=== PATIENT | female | born 1930 ===

== ENCOUNTER 2017-05-22 19:01 | Emergency (ER) | payer MEDICARE, MEDICAID ==
[2017-05-22 19:12] VITALS: BP 146/88; PULSE 85; RESP 20; TEMP 98.9; O2SAT 97
--- NOTE | 2017-05-22 20:06 | ED PDOC ---
HPI: Trauma/Fall - HPI Time Seen by Provider: 05/22/17 19:28 Chief Complaint (Nursing): Trauma Chief Complaint (Provider): Head pain History Per: Patient History/Exam Limitations: no limitations Onset/Duration Of Symptoms: Hrs Additional Complaint(s): Patient is an 87 year old female with a past medical history of hypertension, arthritis, hypercholesterolemia, and gastritis presenting to the emergency department for mild head pain status post fall three hours ago. States that she was walking when she slipped and fell backwards, hitting the back of her head. Cannot provide the names of her medications. Denies loss of consciousness, nausea, vomiting, or other complaints. PCP: Dr. Se Callahan Past Medical History Reviewed: Historical Data, Nursing Documentation, Vital Signs Vital Signs: Last Vital Signs Temp 98.9 F 05/22/17 19:08 Pulse 85 05/22/17 19:08 Resp 20 05/22/17 19:08 BP 146/88 05/22/17 19:08 Pulse Ox 97 05/22/17 19:08 - Medical History PMH: Asthma, Gastritis, HTN, Hypercholesterolemia, Chronic Pain (back, b/l hip) - Family History Family History: States: Unknown Family Hx - Immunization History Hx Tetanus Toxoid Vaccination: No Hx Influenza Vaccination: No Hx Pneumococcal Vaccination: No - Home Medications Home Medications: Ambulatory Orders Medication Instructions Recorded Brimonidine 0.15% [Alphagan P 5 Ml] 1 drop OP BID 05/28/16 Celecoxib [CeleBREX] 200 mg PO DAILY 05/28/16 Ergocalciferol (Vitamin D2) 50,000 iu PO DAILY 05/28/16 [Vitamin D] Esomeprazole Magnesium [Nexium] 40 mg PO DAILY 05/28/16 Multivit,Iron,Min 5/Folic Acid 1 each PO DAILY 05/28/16 [Strovite Forte Caplet] [place]-3 Acid Ethyl Esters 1 gm PO DAILY 05/28/16 Rosuvastatin Calcium [Crestor] 5 mg PO DAILY 05/28/16 amLODIPine [Norvasc] 5 mg PO DAILY 05/28/16 Acetaminophen [8 Hour Pain Relief] 650 mg PO Q8 PRN #24 tablet.er 10/13/16 Diclofenac Sodium [Voltaren] 2 gm TP BID PRN #100 gel..gram. 10/13/16 - Allergies Allergies/Adverse Reactions: Allergies Allergy/AdvReac Type Severity Reaction Status Date / Time Penicillins Allergy RASH Verified 05/22/17 19:07 Review of Systems ROS Statement: Except As Marked, All Systems Reviewed And Found Negative Gastrointestinal: Negative for: Nausea, Vomiting Musculoskeletal: Positive for: Other (mild head pain) Neurological: Negative for: Other (loss of consciousness) Physical Exam - Reviewed Nursing Documentation Reviewed: Yes Vital Signs Reviewed: Yes - Physical Exam Appears: Positive for: Well, Non-toxic, No Acute Distress Head Exam: Positive for: ATRAUMATIC, NORMAL INSPECTION, NORMOCEPHALIC Skin: Positive for: Normal Color, Warm, Dry Eye Exam: Positive for: Normal appearance, EOMI Neck: Positive for: Normal, Painless ROM, Supple Cardiovascular/Chest: Positive for: Regular Rate, Rhythm. Negative for: Murmur Respiratory: Positive for: Normal Breath Sounds. Negative for: Accessory Muscle Use, Respiratory Distress Gastrointestinal/Abdominal: Positive for: Normal Exam, Soft Extremity: Positive for: Normal ROM. Negative for: Pedal Edema Neurologic/Psych: Positive for: Alert, Oriented. Negative for: Motor/Sensory Deficits - Laboratory Results Result Diagrams: 05/22/17 21:45 05/22/17 21:45 - ECG O2 Sat by Pulse Oximetry: 97 (RA) Pulse Ox Interpretation: Normal Medical Decision Making Medical Decision Making: Time: 19:28 Initial Impression: Head injury, rule out intracranial bleeding Initial Plan: Head CT scan Urine Dipstick Reevaluation 20:40 Additional orders placed for: Crisis Evaluation Labs Ativan 3 mg IM 1:1 Observation 21:22 Contacted patient's daughter who admits that patient has dementia in addition to episodes of confusion and memory issues. Requests crisis consult for evaluation. Will have med clearance done. Pt is medically cleared for crisis eval. Crisis eval: per Dr Lepe pt does not require screening involunatry admission and or eligible for voluntary admission thus cleared for discharge. FINDINGS: Brain: Noxe-lw-ydkqgyum atrophy. No intracranial hemorrhage. No mass. Multiple scattered foci of decreased attenuation within periventricular/subcortical white matter. Chronic lacunar infarct within LEFT thalamus. No edema. Ventricles: No hydrocephalus. Bones/joints: No acute fracture. Soft tissues: Unremarkable. Vasculature: Atherosclerotic disease of intracranial arteries. Sinuses: No acute sinusitis. Mastoid air cells: No mastoid effusion. Orbits: Unremarkable as visualized. IMPRESSION: 1. No intracranial hemorrhage. 2. Nonspecific white matter changes. 3. Incidental/non-acute findings are described above. Scribe Attestation: Documented by Yamilet Palencia, acting as a scribe for Ton Kyle MD. Provider Scribe Attestation: All medical record entries made by the Scribe were at my direction and personally dictated by me. I have reviewed the chart and agree that the record accurately reflects my personal performance of the history, physical exam, medical decision making, and the department course for this patient. I have also personally directed, reviewed, and agree with the discharge instructions and disposition. Disposition - Clinical Impression Clinical Impression: Head injury - Patient ED Disposition Is Patient to be Admitted: No Doctor Will See Patient In The: Office Counseled Patient/Family Regarding: Studies Performed, Diagnosis, Need For Followup - Disposition Referrals: [facility] [Outside] Disposition: Routine/Home Disposition Time: 23:08 Condition: GOOD Additional Instructions: Follow up with your PCP in 2-3 days. Instructions: Head Injury (ED) Print Language: MONTSERRATIAN
[2017-05-22 21:55] LABS: HEMATOCRIT 38.2 % (34.0-47.0); MEAN CELL VOLUME 105.6 fl (81.0-99.0); MEAN CORPUSCULAR HEMOGLOBIN 35.4 pg (27.0-31.0); MEAN CORPUSCULAR HGB CONC 33.5 g/dL (33.0-37.0); RED CELL DISTRIBUTION WIDTH 13.3 % (11.5-14.5); WHITE BLOOD COUNT 4.9 K/uL (4.8-10.8)
[2017-05-22 22:07] LABS: BLOOD UREA NITROGEN 15 mg/dl (7-17); CARBON DIOXIDE 32 mmol/L (22-30); CHLORIDE 99 mmol/L (98-107); GFR AFRICAN-AMERICAN > 60; GLUCOSE,RANDOM 102 mg/dL (65-105); POTASSIUM 3.8 MMOL/L (3.6-5.0); SODIUM 139 mmol/l (132-148)
--- NOTE | 2017-05-22 23:03 | CT ---
EXAM: CT Head Without Intravenous Contrast CLINICAL HISTORY: 87 years old, female; Injury or trauma; Fall; Initial encounter; Laceration; Consciousness not specified; Without residual foreign body; Head, generalized; Injury date: Today; Injury details: Falling. HTN. Blurred vision; Additional info: Head injury headache TECHNIQUE: Axial computed tomography images of the head/brain without intravenous contrast. All CT scans at this facility use one or more dose reduction techniques, viz.: automated exposure control; ma/kV adjustment per patient size (including targeted exams where dose is matched to indication; i.e. head); or iterative reconstruction technique. Coronal and sagittal reformatted images were created and reviewed. COMPARISON: CT - HEAD^HEAD ROUTINE (ADULT) 02/12/2010 2:51:23 AM FINDINGS: Brain: Hylg-ki-nduoxlev atrophy. No intracranial hemorrhage. No mass. Multiple scattered foci of decreased attenuation within periventricular/subcortical white matter. Chronic lacunar infarct within LEFT thalamus. No edema. Ventricles: No hydrocephalus. Bones/joints: No acute fracture. Soft tissues: Unremarkable. Vasculature: Atherosclerotic disease of intracranial arteries. Sinuses: No acute sinusitis. Mastoid air cells: No mastoid effusion. Orbits: Unremarkable as visualized. IMPRESSION: 1. No intracranial hemorrhage. 2. Nonspecific white matter changes. 3. Incidental/non-acute findings are described above.
== END 2017-05-23 00:55 | disposition home or self-care (01) ==
LOC: H.ER 19:01
DX: S09.90XA Unspecified injury of head, initial encounter (principal); H53.8 Other visual disturbances; W01.0XXA Fall on same level from slipping, tripping and stumbling without subsequent striking against object, initial encounter; Y92.89 Other specified places as the place of occurrence of the external cause; F03.90 Unspecified dementia, unspecified severity, without behavioral disturbance, psychotic disturbance, mood disturbance, and anxiety; I10 Essential (primary) hypertension; Z88.0 Allergy status to penicillin
CPT/HCPCS: 70450; 80048; 85027; 96372; 99283; J2060

== ENCOUNTER 2017-05-24 23:38 | Emergency (ER) | payer MEDICARE, MEDICAID ==
[2017-05-24 23:48] VITALS: BP 154/86; PULSE 74; RESP 18; TEMP 98.3; O2SAT 99
--- NOTE | 2017-05-25 00:49 | ED PDOC ---
HPI: General Adult Time Seen by Provider: 05/24/17 23:59 Chief Complaint (Nursing): Back Pain Chief Complaint (Provider): Headache s/p injury History Per: Patient History/Exam Limitations: no limitations Onset/Duration Of Symptoms: Days (3) Current Symptoms Are (Timing): Still Present Additional History Per: Patient Additional Complaint(s): The patient is a 87yo female, past medical history of dementia, arthritis, hypertension, hypercholesterolemia, dislipidemia, presents to the ED for evaluation of headache present for the past 3 days s/p falling while attempting to get up form her chair. Patient states she lost her balance and hit her head; she denies associated LOC. She denies any neck apin, nausea, vomiting, shortness of breath, cough and chest pain. Patient offers no additional medical complaints. Past Medical History Reviewed: Historical Data, Nursing Documentation, Vital Signs Vital Signs: Last Vital Signs Temp 98.3 F 05/24/17 23:45 Pulse 74 05/24/17 23:45 Resp 18 05/24/17 23:45 BP 154/86 H 05/24/17 23:45 Pulse Ox 99 05/25/17 00:57 - Medical History PMH: Asthma, Gastritis, HTN, Hypercholesterolemia, Chronic Pain (back, b/l hip) Denies: Diabetes, Hepatitis, HIV, Seizures, Sexually Transmitted Disease - Surgical History Surgical History: No Surg Hx - Family History Family History: States: Unknown Family Hx - Social History Current smoker - smoking cessation education provided: No Alcohol: None Drugs: Denies - Immunization History Hx Tetanus Toxoid Vaccination: No Hx Influenza Vaccination: No Hx Pneumococcal Vaccination: No - Home Medications Home Medications: Ambulatory Orders Medication Instructions Recorded Brimonidine 0.15% [Alphagan P 5 Ml] 1 drop OP BID 05/28/16 Celecoxib [CeleBREX] 200 mg PO DAILY 05/28/16 Ergocalciferol (Vitamin D2) 50,000 iu PO DAILY 05/28/16 [Vitamin D] Esomeprazole Magnesium [Nexium] 40 mg PO DAILY 05/28/16 Multivit,Iron,Min 5/Folic Acid 1 each PO DAILY 05/28/16 [Strovite Forte Caplet] [place]-3 Acid Ethyl Esters 1 gm PO DAILY 05/28/16 Rosuvastatin Calcium [Crestor] 5 mg PO DAILY 05/28/16 amLODIPine [Norvasc] 5 mg PO DAILY 05/28/16 Acetaminophen [8 Hour Pain Relief] 650 mg PO Q8 PRN #24 tablet.er 10/13/16 Diclofenac Sodium [Voltaren] 2 gm TP BID PRN #100 gel..gram. 10/13/16 - Allergies Allergies/Adverse Reactions: Allergies Allergy/AdvReac Type Severity Reaction Status Date / Time Penicillins Allergy RASH Verified 05/22/17 19:07 Review of Systems ROS Statement: Except As Marked, All Systems Reviewed And Found Negative Cardiovascular: Negative for: Chest Pain Respiratory: Negative for: Cough, Shortness of Breath Gastrointestinal: Negative for: Nausea, Vomiting Neurological: Positive for: Headache Physical Exam - Reviewed Nursing Documentation Reviewed: Yes Vital Signs Reviewed: Yes - Physical Exam Appears: Positive for: Well, Non-toxic, No Acute Distress Head Exam: Positive for: ATRAUMATIC, NORMAL INSPECTION, NORMOCEPHALIC Skin: Positive for: Normal Color, Warm, DRY Eye Exam: Positive for: Normal appearance, EOMI, PERRL Neck: Positive for: Normal, Supple Cardiovascular/Chest: Positive for: Regular Rate, Rhythm Respiratory: Positive for: Normal Breath Sounds. Negative for: Respiratory Distress Gastrointestinal/Abdominal: Positive for: Normal Exam, Soft. Negative for: Tenderness Back: Positive for: Normal Inspection Extremity: Positive for: Normal ROM. Negative for: Deformity, Swelling Neurologic/Psych: Positive for: Alert, Oriented. Negative for: Motor/Sensory Deficits - ECG O2 Sat by Pulse Oximetry: 99 (RA) Pulse Ox Interpretation: Normal Medical Decision Making Medical Decision Making: Time: 00:05 Impression: 87yo female with headache in setting of recent head injury Plan: -- CT Head -- Tylenol [address] Head NAD Ptaient is stable for dc home Dx Head injury Patient will f/u with Dr Callahan Scribe Attestation: Documented by Federica Baca acting as a scribe for Frandy Mendoza MD. Provider Attestation: All medical record entries made by the Scribe were at my direction and personally dictated by me. I have reviewed the chart and agree that the record accurately reflects my personal performance of the history, physical exam, medical decision making, and the department course for this patient. I have also personally directed, reviewed, and agree with the discharge instructions and disposition. Disposition - Clinical Impression Clinical Impression: Head injury - Disposition Referrals: Se Callahan MD [Primary Care Provider] - Disposition: Routine/Home Disposition Time: 01:30 Condition: STABLE Instructions: Head Injury (ED) Forms: [facility] (Divehi) Print Language: ICELANDIC
--- NOTE | 2017-05-25 01:30 | CT ---
EXAM: CT Head Without Intravenous Contrast EXAM DATE/TIME: 05/25/2017 12:18 AM CLINICAL HISTORY: 87 years old, female; Injury or trauma; Fall TECHNIQUE: Axial computed tomography images of the head/brain without intravenous contrast. All CT scans at this facility use one or more dose reduction techniques, viz.: automated exposure control; ma/kV adjustment per patient size (including targeted exams where dose is matched to indication; i.e. head); or iterative reconstruction technique. Coronal and sagittal reformatted images were created and reviewed. COMPARISON: CT - HEAD W/O CONTRAST 05/22/2017 10:08:43 PM FINDINGS: Brain: There is dilatation of sulci gyri and ventricles. There is no midline shift. There is decreased attenuation in periventricular white matter. There are no focal masses. There are no focal hemorrhages. House-white differentiation is visualized. Ventricles: See above. Bones: Cranial vault is intact. Soft tissues: unremarkable Sinuses: There is no acute sinusitis. Ears and mastoids: Middle ears and mastoids are unremarkable. Orbits: There are no orbital abnormalities IMPRESSION: Atrophy and small vessel disease, notably
== END 2017-05-25 05:02 | disposition home or self-care (01) ==
LOC: H.ER 23:38
DX: S09.90XA Unspecified injury of head, initial encounter (principal); W19.XXXA Unspecified fall, initial encounter; Y92.89 Other specified places as the place of occurrence of the external cause; F03.90 Unspecified dementia, unspecified severity, without behavioral disturbance, psychotic disturbance, mood disturbance, and anxiety; G89.29 Other chronic pain; I10 Essential (primary) hypertension; I73.9 Peripheral vascular disease, unspecified; J45.909 Unspecified asthma, uncomplicated; Z88.0 Allergy status to penicillin

== ENCOUNTER 2017-06-07 13:37 | Emergency (ER) | payer MEDICARE, MEDICAID ==
[2017-06-07 13:53] VITALS: TEMP 97.8; O2SAT 98
--- NOTE | 2017-06-07 14:28 | ED PDOC ---
HPI: General Adult Time Seen by Provider: 06/07/17 13:58 Chief Complaint (Nursing): Abdominal Pain Chief Complaint (Provider): Dry mouth, anxious History Per: Patient History/Exam Limitations: no limitations Onset/Duration Of Symptoms: Days (1), Waxing/Waning Additional Complaint(s): The patient is a 87yo female, PMHx of hypertension, dementia, anxiety, arthritis , who presents to the ED for evaluation because she is not feeling well and that her mouth has been dry all day. She reports feeling anxious and generalized fatigue. Pt denies any fever, chills, headache, chest pain, abdominal pain, nausea, vomiting, back pain. She offers no additional medical complaints. Past Medical History Reviewed: Historical Data, Nursing Documentation, Vital Signs Vital Signs: Last Vital Signs Temp 97.8 F 06/07/17 13:49 Pulse 66 06/07/17 15:53 Resp 16 06/07/17 13:49 BP 169/78 H 06/07/17 13:49 Pulse Ox 98 06/07/17 15:53 - Medical History PMH: Asthma, Gastritis, HTN, Hypercholesterolemia, Chronic Pain (back, b/l hip) Denies: Diabetes, Hepatitis, HIV, Seizures, Sexually Transmitted Disease - Surgical History Surgical History: No Surg Hx - Family History Family History: States: Unknown Family Hx - Social History Current smoker - smoking cessation education provided: No Alcohol: None Drugs: Denies - Immunization History Hx Tetanus Toxoid Vaccination: No Hx Influenza Vaccination: No Hx Pneumococcal Vaccination: No - Home Medications Home Medications: Ambulatory Orders Medication Instructions Recorded Brimonidine 0.15% [Alphagan P 5 Ml] 1 drop OP BID 05/28/16 Celecoxib [CeleBREX] 200 mg PO DAILY 05/28/16 Ergocalciferol (Vitamin D2) 50,000 iu PO DAILY 05/28/16 [Vitamin D] Esomeprazole Magnesium [Nexium] 40 mg PO DAILY 05/28/16 Multivit,Iron,Min 5/Folic Acid 1 each PO DAILY 05/28/16 [Strovite Forte Caplet] [place]-3 Acid Ethyl Esters 1 gm PO DAILY 05/28/16 Rosuvastatin Calcium [Crestor] 5 mg PO DAILY 05/28/16 amLODIPine [Norvasc] 5 mg PO DAILY 05/28/16 Acetaminophen [8 Hour Pain Relief] 650 mg PO Q8 PRN #24 tablet.er 10/13/16 Diclofenac Sodium [Voltaren] 2 gm TP BID PRN #100 gel..gram. 10/13/16 - Allergies Allergies/Adverse Reactions: Allergies Allergy/AdvReac Type Severity Reaction Status Date / Time Penicillins Allergy RASH Verified 05/22/17 19:07 Review of Systems ROS Statement: Except As Marked, All Systems Reviewed And Found Negative Constitutional: Positive for: Other (generalized fatigue). Negative for: Fever , Chills ENT: Positive for: Other (dry mouth) Cardiovascular: Negative for: Chest Pain Gastrointestinal: Negative for: Nausea, Vomiting, Abdominal Pain Musculoskeletal: Negative for: Back Pain Neurological: Negative for: Headache Psych: Positive for: Anxiety Physical Exam - Reviewed Nursing Documentation Reviewed: Yes Vital Signs Reviewed: Yes - Physical Exam Appears: Positive for: Non-toxic, No Acute Distress Head Exam: Positive for: ATRAUMATIC, NORMAL INSPECTION, NORMOCEPHALIC Skin: Positive for: Normal Color Eye Exam: Positive for: Normal appearance, EOMI, PERRL Neck: Positive for: Normal, Supple Cardiovascular/Chest: Positive for: Regular Rate, Rhythm. Negative for: Murmur Respiratory: Positive for: Normal Breath Sounds. Negative for: Respiratory Distress Gastrointestinal/Abdominal: Positive for: Normal Exam, Soft. Negative for: Tenderness Back: Positive for: Normal Inspection Extremity: Positive for: Normal ROM. Negative for: Deformity, Swelling Neurologic/Psych: Positive for: Alert, Oriented. Negative for: Motor/Sensory Deficits - Laboratory Results Result Diagrams: 06/07/17 14:32 06/07/17 14:32 - ECG ECG: Positive for: Interpreted By Me, Viewed By Me ECG Rhythm: Positive for: Normal QRS, Normal ST Segment, Sinus Rhythm. Negative for: ST/T Changes Rate: 66 O2 Sat by Pulse Oximetry: 98 (RA) Pulse Ox Interpretation: Normal Medical Decision Making Medical Decision Making: Time: 1405 Impression: Fatigue Differential: Dehydration, acute renal failure, anxiety, UTI, other conditions considered but not listed. Plan: -- EKG -- CMP -- Troponin -- CBC --Reassess Scribe Attestation: Documented by Federica Baca acting as a scribe for Ton Kyle MD Provider Scribe Attestation: All medical record entries made by the Scribe were at my direction and personally dictated by me. I have reviewed the chart and agree that the record accurately reflects my personal performance of the history, physical exam, medical decision making, and the department course for this patient. I have also personally directed, reviewed, and agree with the discharge instructions and disposition. Disposition - Clinical Impression Clinical Impression: Mouth dryness, Anxiety, Fatigue - Patient ED Disposition Is Patient to be Admitted: No Doctor Will See Patient In The: Office Counseled Patient/Family Regarding: Studies Performed, Diagnosis, Need For Followup - Disposition Referrals: Se Callahan MD [Staff Provider] - Disposition: Routine/Home Disposition Time: 15:54 Condition: GOOD Additional Instructions: Follow up with your PCP in 2-3 days. Instructions: Anxiety (ED)
[2017-06-07 14:36] LABS: BASO # 0.1 K/uL (0.0-0.2); BASO % 0.9 % (0.0-2.0); EOS % 0.3 % (0.0-4.0); HEMATOCRIT 40.1 % (34.0-47.0); LYMPH % 13.6 % (20.0-40.0); MEAN CELL VOLUME 106.3 fl (81.0-99.0); MEAN CORPUSCULAR HEMOGLOBIN 35.2 pg (27.0-31.0); MEAN CORPUSCULAR HGB CONC 33.1 g/dL (33.0-37.0); MEAN PLATELET VOLUME 8.1 fl (7.2-11.7); MONO # 0.6 K/uL (0.0-0.8); MONO % 7.9 % (0.0-10.0); NEUT # 5.8 K/uL (1.8-7.0); NEUT % 77.3 % (50.0-75.0); RED CELL DISTRIBUTION WIDTH 13.5 % (11.5-14.5); WHITE BLOOD COUNT 7.4 K/uL (4.8-10.8)
[2017-06-07 14:58] VITALS: PULSE 66
[2017-06-07 14:59] LABS: ALB/GLOB RATIO 1.3 (1.0-2.1); ALKALINE PHOSPHATASE 71 U/L (38-126); ALT/SGPT 34 U/L (9-52); AST/SGOT 30 U/L (14-36); BILIRUBIN,TOTAL 0.9 mg/dl (0.2-1.3); BLOOD UREA NITROGEN 17 mg/dl (7-17); CARBON DIOXIDE 29 mmol/L (22-30); CHLORIDE 100 mmol/L (98-107); GFR AFRICAN-AMERICAN > 60; GLUCOSE,RANDOM 113 mg/dL (65-105); SODIUM 139 mmol/l (132-148); TOTAL PROTEIN 7.4 G/DL (6.3-8.2)
[2017-06-07 16:03] VITALS: BP 148/71; RESP 14
== END 2017-06-07 16:03 | disposition home or self-care (01) ==
LOC: H.ER 13:37
DX: F41.9 Anxiety disorder, unspecified (principal); F03.90 Unspecified dementia, unspecified severity, without behavioral disturbance, psychotic disturbance, mood disturbance, and anxiety; G89.29 Other chronic pain; I10 Essential (primary) hypertension; Z88.0 Allergy status to penicillin

== ENCOUNTER 2017-07-24 15:06 | Emergency (ER) | payer MEDICARE, MEDICAID ==
[2017-07-24 15:25] VITALS: TEMP 97.2
--- NOTE | 2017-07-24 16:34 | ED PDOC ---
HPI: Neurologic - General Time Seen by Provider: 07/24/17 15:50 Chief Complaint (Nursing): Lower Extremity Problem/Injury Chief Complaint (Provider): Weakness Source: patient Exam Limitations: clinical condition (dementia) - History of Present Illness Timing/Duration: other (x 1 day) Allergies/Adverse Reactions: Allergies Penicillins Allergy (Verified 07/24/17 15:20) RASH Home Medications: Ambulatory Orders Brimonidine 0.15% [Alphagan P 5 Ml] 1 drop OP BID 05/28/16 Celecoxib [CeleBREX] 200 mg PO DAILY 05/28/16 Ergocalciferol (Vitamin D2) [Vitamin D] 50,000 iu PO DAILY 05/28/16 Esomeprazole Magnesium [Nexium] 40 mg PO DAILY 05/28/16 Multivit,Iron,Min 5/Folic Acid [Strovite Forte Caplet] 1 each PO DAILY 05/28/16 [place]-3 Acid Ethyl Esters 1 gm PO DAILY 05/28/16 Rosuvastatin Calcium [Crestor] 5 mg PO DAILY 05/28/16 amLODIPine [Norvasc] 5 mg PO DAILY 05/28/16 Acetaminophen [8 Hour Pain Relief] 650 mg PO Q8 PRN #24 tablet.er 10/13/16 Diclofenac Sodium [Voltaren] 2 gm TP BID PRN #100 gel..gram. 10/13/16 Additional Complaint(s): Jazmine Pacheco is an 87 y/o female who presents to the ED complaining that she feels very weak today. She may have tripped and fallen onto her knees. Patient is unable to give clear history due to dementia. She lives by herself. Patient reports that she takes all of her medications as prescribed, but is unable to remember many of medications or medical issues. Denies chest pain or shortness of breath. Denies any focal weakness. Does not remember if she had any meals today. PMD: Se Callahan Past Medical History Reviewed: Historical Data, Nursing Documentation, Vital Signs Vital Signs: Last Vital Signs Temp 97.2 F L 07/24/17 15:21 Pulse 79 07/24/17 15:21 Resp 16 07/24/17 15:21 BP 162/81 H 07/24/17 15:21 Pulse Ox 97 07/24/17 15:21 - Medical History PMH: Anxiety, Arthritis, Asthma, Dementia, Gastritis, HTN, Hypercholesterolemia , Chronic Pain (back, b/l hip) Denies: Diabetes, Hepatitis, HIV, Seizures, Sexually Transmitted Disease - Family History Family History: States: Unknown Family Hx - Social History Current smoker - smoking cessation education provided: No Alcohol: None - Immunization History Hx Tetanus Toxoid Vaccination: No Hx Influenza Vaccination: No Hx Pneumococcal Vaccination: No - Home Medications Home Medications: Ambulatory Orders Medication Instructions Recorded Brimonidine 0.15% [Alphagan P 5 Ml] 1 drop OP BID 05/28/16 Celecoxib [CeleBREX] 200 mg PO DAILY 05/28/16 Ergocalciferol (Vitamin D2) 50,000 iu PO DAILY 05/28/16 [Vitamin D] Esomeprazole Magnesium [Nexium] 40 mg PO DAILY 05/28/16 Multivit,Iron,Min 5/Folic Acid 1 each PO DAILY 05/28/16 [Strovite Forte Caplet] [place]-3 Acid Ethyl Esters 1 gm PO DAILY 05/28/16 Rosuvastatin Calcium [Crestor] 5 mg PO DAILY 05/28/16 amLODIPine [Norvasc] 5 mg PO DAILY 05/28/16 Acetaminophen [8 Hour Pain Relief] 650 mg PO Q8 PRN #24 tablet.er 10/13/16 Diclofenac Sodium [Voltaren] 2 gm TP BID PRN #100 gel..gram. 10/13/16 - Allergies Allergies/Adverse Reactions: Allergies Allergy/AdvReac Type Severity Reaction Status Date / Time Penicillins Allergy RASH Verified 07/24/17 15:20 Review of Systems ROS Statement: Except As Marked, All Systems Reviewed And Found Negative Constitutional: Positive for: Chills, Weakness, Malaise (and fatigue). Negative for: Fever Cardiovascular: Positive for: Light Headedness. Negative for: Chest Pain Respiratory: Negative for: Shortness of Breath Gastrointestinal: Positive for: Other (Loss of appetite). Negative for: Vomiting, Diarrhea Musculoskeletal: Positive for: Leg Pain (Right knee) Physical Exam - Reviewed Nursing Documentation Reviewed: Yes Vital Signs Reviewed: Yes - Physical Exam Appears: Positive for: Non-toxic, No Acute Distress Head Exam: Positive for: ATRAUMATIC, NORMOCEPHALIC Skin: Positive for: Warm, Dry Eye Exam: Positive for: EOMI, PERRL Neck: Positive for: Painless ROM, Supple Cardiovascular/Chest: Positive for: Regular Rate, Rhythm, Chest Non Tender. Negative for: Murmur Respiratory: Positive for: Normal Breath Sounds. Negative for: Respiratory Distress Gastrointestinal/Abdominal: Positive for: Soft. Negative for: Tenderness Back: Positive for: Normal Inspection. Negative for: Decreased ROM Extremity: Positive for: Other (RIGHT knee with mild edema, no deformity). Negative for: Deformity Lymphatic: Negative for: Adenopathy Neurologic/Psych: Positive for: Alert, Oriented (x2), Mood/Affect (mildly anxious affect). Negative for: Motor/Sensory Deficits - Laboratory Results Result Diagrams: 07/24/17 16:33 07/24/17 16:33 - ECG O2 Sat by Pulse Oximetry: 97 (RA) Pulse Ox Interpretation: Normal - Progress ED Course And Treament: Discussed with patients daughter, Adelia, and patient appears to be at her baseline mental status. Daughter believes she shouldn't be living alone but patient refuses to live with her daughter long-term or be placed in long-term care facility. Daughter is unsure if she takes her medications appropriately and thinks that she skips meals often. Also reports that homemakers switch often because the patient has frequent arguments with them or accuses them of stealing. Daughter states that she has POA but she is unsure if it applies to healthcare situations. Medical Decision Making Medical Decision Making: Initial Impression: Weakness, Dementia Time: 16:11 Initial Plan: --EKG --B-type natriuretic peptide --CMP --Magnesium --Phosphorous --TSH --Troponin I --Urine dipstick --CBC --Blood culture --Chest X-Ray --Tylenol 650 mg PO --Pending CT Head w/o contrast 1810 CT Head Without Intravenous Contrast COMPARISON: CT - HEAD W/O CONTRAST 2017-05-25 00:32 FINDINGS: There is no subdural or subarachnoid hemorrhage. There is no intraparenchymal hemorrhage or hemorrhagic contusion. Normal mark white differentiation is noted. No midline shift or mass effect is identified. There are periventricular white matter changes of small vessel ischemic disease. There is a tiny old lacunar infarct left thalamus. There is cerebral atrophy. Calvarium and visualized facial bones appear intact. There are minimal mucosal thickening of ethmoid sinuses. IMPRESSION: 1. No evidence of acute intracerebral hemorrhage or edema. 2. Small vessel ischemic disease. 630p Labs unremarkable. Daughter in ER and would like to take patient home. DW daughter plan of care. (Needs neuro/geropsych as outpatient.) Scribe Attestation: Documented by Elizabeth Parker, acting as a scribe for Ashley Garcia MD Provider Scribe Attestation: All medical record entries made by the Scribe were at my direction and personally dictated by me. I have reviewed the chart and agree that the record accurately reflects my personal performance of the history, physical exam, medical decision making, and the department course for this patient. I have also personally directed, reviewed, and agree with the discharge instructions and disposition. Disposition - Clinical Impression Clinical Impression: Weakness, Dementia Counseled Patient/Family Regarding: Studies Performed, Diagnosis, Need For Followup - Disposition Disposition: Routine/Home Disposition Time: 18:00 Condition: GOOD Additional Instructions: PLEASE FOLLOW UP WITH YOUR PMD AND NEUROLOGIST WEDNESDAY FOR FURTHER EVALUATION AND MANAGEMENT Instructions: Dementia (ED), Weakness (ED) Forms: [employer] (Maltese)
[2017-07-24 16:37] LABS: BASO # 0.1 K/uL (0.0-0.2); EOS # 0.1 K/uL (0.0-0.7); EOS % 1.3 % (0.0-4.0); HEMATOCRIT 39.3 % (34.0-47.0); LYMPH # 0.9 K/uL (1.0-4.3); LYMPH % 15.7 % (20.0-40.0); MEAN CELL VOLUME 105.4 fl (81.0-99.0); MEAN CORPUSCULAR HEMOGLOBIN 35.5 pg (27.0-31.0); MEAN CORPUSCULAR HGB CONC 33.6 g/dL (33.0-37.0); MEAN PLATELET VOLUME 8.5 fl (7.2-11.7); MONO # 0.6 K/uL (0.0-0.8); MONO % 10.3 % (0.0-10.0); NEUT # 4.3 K/uL (1.8-7.0); NEUT % 71.7 % (50.0-75.0); RED CELL DISTRIBUTION WIDTH 13.8 % (11.5-14.5)
[2017-07-24 16:55] LABS: ALB/GLOB RATIO 1.2 (1.0-2.1); ALKALINE PHOSPHATASE 85 U/L (38-126); ALT/SGPT 24 U/L (9-52); AST/SGOT 27 U/L (14-36); BILIRUBIN,TOTAL 0.9 mg/dl (0.2-1.3); BLOOD UREA NITROGEN 14 mg/dl (7-17); CALCIUM 9.5 mg/dL (8.4-10.2); CARBON DIOXIDE 31 mmol/L (22-30); CHLORIDE 101 mmol/L (98-107); GFR AFRICAN-AMERICAN > 60; GLUCOSE,RANDOM 97 mg/dL (65-105); MAGNESIUM 1.9 MG/DL (1.6-2.3); PHOSPHOROUS 3.7 mg/dl (2.5-4.5); POTASSIUM 3.9 MMOL/L (3.6-5.0); SODIUM 140 mmol/l (132-148); TOTAL PROTEIN 7.6 G/DL (6.3-8.2)
[2017-07-24 17:28] LABS: THYROID STIMULATING HORMONE 0.61 mIU/ML (0.46-4.68)
--- NOTE | 2017-07-24 18:10 | CT ---
EXAM: CT Head Without Intravenous Contrast EXAM DATE/TIME: 07/24/2017 4:12 PM CLINICAL HISTORY: 87 years old, female; Signs and symptoms; Weakness, facial TECHNIQUE: Axial computed tomography images of the head/brain without intravenous contrast. All CT scans at this facility use one or more dose reduction techniques, viz.: automated exposure control; ma/kV adjustment per patient size (including targeted exams where dose is matched to indication; i.e. head); or iterative reconstruction technique. Coronal and sagittal reformatted images were created and reviewed. COMPARISON: CT - HEAD W/O CONTRAST 2017-05-25 00:32 FINDINGS: There is no subdural or subarachnoid hemorrhage. There is no intraparenchymal hemorrhage or hemorrhagic contusion. Normal mark white differentiation is noted. No midline shift or mass effect is identified. There are periventricular white matter changes of small vessel ischemic disease. There is a tiny old lacunar infarct left thalamus. There is cerebral atrophy. Calvarium and visualized facial bones appear intact. There are minimal mucosal thickening of ethmoid sinuses. IMPRESSION: 1. No evidence of acute intracerebral hemorrhage or edema. 2. Small vessel ischemic disease.
[2017-07-24 18:17] VITALS: BP 154/70; PULSE 78; RESP 18
[2017-07-24 18:20] VITALS: O2SAT 97
--- NOTE | 2017-07-25 07:20 | RAD ---
HISTORY: weakness COMPARISON: No prior. FINDINGS: LUNGS: No active pulmonary disease. PLEURA: No significant pleural effusion identified, no pneumothorax apparent. CARDIOVASCULAR: Normal. Atherosclerotic changes of the aorta. OSSEOUS STRUCTURES: No significant abnormalities. VISUALIZED UPPER ABDOMEN: Normal. OTHER FINDINGS: None. IMPRESSION: No active disease.
--- NOTE | 2017-07-25 08:58 | CARD ---
APPROVED REPORT EKG Measurement Heart [id number] <Conclusion> Normal sinus rhythm T wave abnormality, consider anterior ischemia Abnormal ECG
== END 2017-07-24 18:40 | disposition home or self-care (01) ==
LOC: H.ER 15:06
DX: F03.90 Unspecified dementia, unspecified severity, without behavioral disturbance, psychotic disturbance, mood disturbance, and anxiety (principal); I10 Essential (primary) hypertension; Z88.0 Allergy status to penicillin; J45.909 Unspecified asthma, uncomplicated; G89.29 Other chronic pain

== ENCOUNTER 2017-07-30 16:12 | Emergency (ER) | payer MEDICARE, MEDICAID ==
[2017-07-30 16:17] VITALS: BP 116/77; PULSE 76; RESP 18; TEMP 99.1; O2SAT 97
--- NOTE | 2017-07-30 17:23 | ED PDOC ---
Lower Extremity Pain/Injury Time Seen by Provider: 07/30/17 16:18 Chief Complaint (Nursing): Lower Extremity Problem/Injury Chief Complaint (Provider): Lower Extremity Problem/Injury History Per: Patient History/Exam Limitations: no limitations Onset/Duration Of Symptoms: Days (x1) Current Symptoms Are (Timing): Still Present Additional Complaint(s): An 87 y/o female presents to the emergency department with ambulance after tripping, falling and landing on her right shoulder and right hip. Denies head or neck trauma, loss of consciousness and neck pain. PMD: Se Warner Past Medical History Reviewed: Historical Data, Nursing Documentation, Vital Signs Vital Signs: Last Vital Signs Temp 99.1 F 07/30/17 16:15 Pulse 76 07/30/17 16:15 Resp 18 07/30/17 16:15 BP 116/77 07/30/17 16:15 Pulse Ox 97 07/30/17 16:15 - Medical History PMH: Anxiety, Arthritis, Asthma, Dementia, Gastritis, HTN, Hypercholesterolemia , Chronic Pain (back, b/l hip) Denies: Diabetes, Hepatitis, HIV, Seizures, Sexually Transmitted Disease - Surgical History Surgical History: Appendectomy - Family History Family History: States: Unknown Family Hx - Social History Current smoker - smoking cessation education provided: No Alcohol: None Drugs: Denies - Immunization History Hx Tetanus Toxoid Vaccination: No Hx Influenza Vaccination: No Hx Pneumococcal Vaccination: No - Home Medications Home Medications: Ambulatory Orders Medication Instructions Recorded Brimonidine 0.15% [Alphagan P 5 Ml] 1 drop OP BID 05/28/16 Celecoxib [CeleBREX] 200 mg PO DAILY 05/28/16 Ergocalciferol (Vitamin D2) 50,000 iu PO DAILY 05/28/16 [Vitamin D] Esomeprazole Magnesium [Nexium] 40 mg PO DAILY 05/28/16 Multivit,Iron,Min 5/Folic Acid 1 each PO DAILY 05/28/16 [Strovite Forte Caplet] [place]-3 Acid Ethyl Esters 1 gm PO DAILY 05/28/16 Rosuvastatin Calcium [Crestor] 5 mg PO DAILY 05/28/16 amLODIPine [Norvasc] 5 mg PO DAILY 05/28/16 Acetaminophen [8 Hour Pain Relief] 650 mg PO Q8 PRN #24 tablet.er 10/13/16 Diclofenac Sodium [Voltaren] 2 gm TP BID PRN #100 gel..gram. 10/13/16 Naproxen [Naprosyn] 500 mg PO Q12H #20 tab 07/30/17 - Allergies Allergies/Adverse Reactions: Allergies Allergy/AdvReac Type Severity Reaction Status Date / Time Penicillins Allergy RASH Verified 07/24/17 15:20 Review of Systems ROS Statement: Except As Marked, All Systems Reviewed And Found Negative (As per HPI, otherwise negative) Musculoskeletal: Positive for: Shoulder Pain (Right), Other (Right hip pain). Negative for: Neck Pain (Head or Neck trauma) Neurological: Negative for: Other (Loss of Consciousness) Physical Exam - Reviewed Nursing Documentation Reviewed: Yes Vital Signs Reviewed: Yes - Physical Exam Appears: Positive for: Non-toxic, No Acute Distress Head Exam: Positive for: ATRAUMATIC, NORMAL INSPECTION, NORMOCEPHALIC Skin: Positive for: Normal Color, Warm Neck: Positive for: Normal (Non tender. No deformity noted), Painless ROM. Negative for: Pain On Movement Of Neck Cardiovascular/Chest: Positive for: Regular Rate, Rhythm. Negative for: Murmur Respiratory: Positive for: Normal Breath Sounds. Negative for: Accessory Muscle Use, Respiratory Distress Back: Positive for: Normal Inspection. Negative for: Other (midline spinal tenderness or deformity) Extremity: Positive for: Normal ROM (Full ROM of hip and right knee (no tenderness)), Tenderness (Tenderness right ischial area. No tenderness over trochanter. FROM). Negative for: Deformity (shortening), Other (inflammation or external rotation) Neurologic/Psych: Positive for: Alert, Oriented (x3). Negative for: Motor/ Sensory Deficits - ECG O2 Sat by Pulse Oximetry: 97 (RA) Pulse Ox Interpretation: Normal Medical Decision Making Medical Decision Making: Time: 16:33 Initial Impression: Right shoulder pain and right hip pain S/P fall Initial Plan: X-rays -- Right hip -- Right shoulder -- Lumbar spine Scribe Attestation: Documented by Hayley Randolph, acting as a scribe for Lan Douglas MD. Provider Scribe Attestation: All medical record entries made by the Scribe were at my direction and personally dictated by me. I have reviewed the chart and agree that the record accurately reflects my personal performance of the history, physical exam, medical decision making, and the department course for this patient. I have also personally directed, reviewed, and agree with the discharge instructions and disposition. Disposition - Clinical Impression Clinical Impression: Shoulder contusion, Low back sprain - Patient ED Disposition Is Patient to be Admitted: No - Disposition Referrals: [facility] [Outside] Disposition: Routine/Home Disposition Time: 17:58 Condition: FAIR Prescriptions: Naproxen [Naprosyn] 500 mg PO Q12H #20 tab Instructions: Contusion in Adults (ED), Back Pain (ED) Forms: [facility] [employer] (Croatian) Print Language: MACEDONIAN
--- NOTE | 2017-07-31 10:46 | RAD ---
PROCEDURE: Right Hip Radiographs. HISTORY: trauma COMPARISON: 10/13/2016 FINDINGS: BONES: The pelvic ring is intact. There is diffuse bone demineralization. There is no acute displaced fracture or bone destruction. No hardware complications in the right hip. JOINTS: Status post total right hip arthroplasty. The left hip joint space is preserved. SOFT TISSUES: Normal. OTHER FINDINGS: None. IMPRESSION: No acute displaced fracture or dislocation.
--- NOTE | 2017-07-31 10:51 | RAD ---
PROCEDURE: Radiographs of the Lumbar Spine. HISTORY: trauma r/o fx COMPARISON: No prior. FINDINGS: BONES: There is a 10 mm anterior listhesis of L4 on L5. There is diffuse bone demineralization. There is an age indeterminate mild superior endplate compression deformity in the L1 vertebral body. DISC SPACES: There is mild degenerative disc disease at L4-5 and L5-S1. The remaining disc heights are maintained OTHER FINDINGS: There are advanced atherosclerotic calcifications. IMPRESSION: Age-indeterminate mild superior endplate compression deformity in the L1 vertebral body. Mild degenerative disc disease at L4-5 and L5-S1.
--- NOTE | 2017-07-31 10:56 | RAD ---
PROCEDURE: Radiographs of the Right Shoulder HISTORY: Trauma COMPARISON: No prior. FINDINGS: BONES: There is diffuse bone demineralization. There is no acute displaced fracture or bone destruction. JOINTS: There is mild degenerative osteoarthrosis in the glenohumeral joint. The acromioclavicular joint is normal. SOFT TISSUES: Normal. OTHER FINDINGS: None. IMPRESSION: No acute fracture or dislocation.
== END 2017-07-30 18:07 | disposition home or self-care (01) ==
LOC: H.ER 16:12
DX: S40.011A Contusion of right shoulder, initial encounter (principal); M54.9 Dorsalgia, unspecified; M25.551 Pain in right hip; W19.XXXA Unspecified fall, initial encounter; Y92.89 Other specified places as the place of occurrence of the external cause; M51.36 Other intervertebral disc degeneration, lumbar region; M51.37 Other intervertebral disc degeneration, lumbosacral region

== ENCOUNTER 2017-08-13 19:08 | Inpatient (IN) | payer MEDICARE, MEDICAID ==
--- NOTE | 2017-08-13 20:02 | ED PDOC ---
HPI: Trauma/Fall - HPI Time Seen by Provider: 08/13/17 19:20 Chief Complaint (Nursing): Trauma Chief Complaint (Provider): fall History Per: Patient History/Exam Limitations: no limitations Onset/Duration Of Symptoms: Days (x1) Additional Complaint(s): Jazmine Pacheco is an 87 year old female with previous medical history of arthritis, hypertension and dementia, who presents to the emergency department for an evaluation status post falling on her buttocks around 0930 earlier today. Patient reported no pain at present. She also denies audio or visual hallucinations presently but stated she has been anxious since the fall occurred. PMD: Se Callahan MD Past Medical History Reviewed: Historical Data, Nursing Documentation, Vital Signs Vital Signs: Last Vital Signs Temp 97.8 F 08/13/17 19:18 Pulse 58 L 08/13/17 19:18 Resp 20 08/13/17 19:18 BP 168/69 H 08/13/17 19:18 Pulse Ox 100 08/14/17 01:42 - Medical History PMH: Anxiety, Arthritis, Asthma, Dementia, Gastritis, HTN, Hypercholesterolemia , Chronic Pain (back, b/l hip) Denies: Diabetes, Hepatitis, HIV, Seizures, Sexually Transmitted Disease - Surgical History Surgical History: Appendectomy - Family History Family History: States: Unknown Family Hx - Social History Current smoker - smoking cessation education provided: No Ex-Smoker (has not smoked in the last 12 months): No Alcohol: None Drugs: Denies - Immunization History Hx Tetanus Toxoid Vaccination: No Hx Influenza Vaccination: No Hx Pneumococcal Vaccination: No - Home Medications Home Medications: Ambulatory Orders Medication Instructions Recorded Ergocalciferol (Vitamin D2) 50,000 unit PO QWK 05/28/16 [Vitamin D] [place]-3 Acid Ethyl Esters 1 gm PO BID 05/28/16 amLODIPine [Norvasc] 5 mg PO DAILY 05/28/16 Alprazolam [Xanax] 0.5 mg PO BID PRN 08/05/17 Atorvastatin [Lipitor] 10 mg PO HS 08/05/17 Donepezil [Aricept] 10 mg PO HS 08/05/17 Lubiprostone [Amitiza] 24 mcg PO BID 08/05/17 Nitrofurantoin Macrocrystals 100 mg PO BID #14 cap 08/05/17 [Macrobid] - Allergies Allergies/Adverse Reactions: Allergies Allergy/AdvReac Type Severity Reaction Status Date / Time Penicillins Allergy RASH Verified 07/24/17 15:20 Review of Systems ROS Statement: Except As Marked, All Systems Reviewed And Found Negative Neurological: Negative for: Other (LOC) Psych: Positive for: Anxiety Physical Exam - Reviewed Nursing Documentation Reviewed: Yes Vital Signs Reviewed: Yes - Physical Exam Appears: Positive for: Well, Non-toxic, No Acute Distress Head Exam: Positive for: ATRAUMATIC, NORMAL INSPECTION, NORMOCEPHALIC Skin: Positive for: Normal Color Eye Exam: Positive for: Normal appearance, EOMI, PERRL. Negative for: Nystagmus ENT: Positive for: Normal ENT Inspection Neck: Positive for: Normal, Painless ROM, Supple. Negative for: Decreased ROM Cardiovascular/Chest: Positive for: Regular Rate, Rhythm, Chest Non Tender Respiratory: Positive for: Normal Breath Sounds, Accessory Muscle Use. Negative for: Decreased Breath Sounds, Respiratory Distress Gastrointestinal/Abdominal: Positive for: Normal Exam Back: Positive for: Normal Inspection. Negative for: L CVA Tenderness, R CVA Tenderness Extremity: Positive for: Normal ROM. Negative for: Tenderness, Pedal Edema, Deformity Neurologic/Psych: Positive for: Alert, Oriented - Laboratory Results Result Diagrams: 08/13/17 23:59 08/13/17 23:59 - ECG O2 Sat by Pulse Oximetry: 100 (RA) Pulse Ox Interpretation: Normal Medical Decision Making Medical Decision Making: Initial Impression: S/P fall; asymptomatic at present Time: 1949 --Nursing staff instructed to contact family to notify patient will be discharged home. Time: 2145 --Family contacted, POA, via phone. Informed nursing staff that patient's dementia has progressively been getting worse. Requesting patient undergo crisis evaluation. --Crisis eval ordered. Scribe Attestation: Documented by Latricia Lemus, acting as a scribe for Frandy Mendoza MD. Provider Scribe Attestation: All medical record entries made by the Scribe were at my direction and personally dictated by me. I have reviewed the chart and agree that the record accurately reflects my personal performance of the history, physical exam, medical decision making, and the department course for this patient. I have also personally directed, reviewed, and agree with the discharge instructions and disposition. Time: 01:28 After evaluation by crisis, patient is admitted for further treatment and psychiatric evaluation. Chest x-ray shows no acute distress and patient's condition is fair. Clnical Impression: Dementia Scribe Attestation: Documented by Hayley Randolph acting as a scribe for Frandy Mendoza MD. MD Scribe Attestation: All medical record entries made by the Scribe were at my direction and personally dictated by me. I have reviewed the chart and agree that the record accurately reflects my personal performance of the history, physical exam, medical decision making, and the department course for this patient. I have also personally directed, reviewed, and agree with the discharge instructions and disposition. Disposition - Clinical Impression Clinical Impression: Fall, Dementia - Patient ED Disposition Is Patient to be Admitted: Yes - Disposition Disposition Time: 22:00 Condition: FAIR - Pt Status Changed To: Hospital Disposition Of: Inpatient - Admit Certification Admit to Inpatient:: After my assessment, the patient will require hospitalization for at least two midnights. This is because of the severity of symptoms shown, intensity of services needed, and/or the medical risk in this patient being treated as an outpatient. - POA Present On Arrival: Falls Or Trauma
[2017-08-14 00:46] LABS: BASO # 0.1 K/uL (0.0-0.2); BASO % 0.8 % (0.0-2.0); EOS # 0.1 K/uL (0.0-0.7); EOS % 1.1 % (0.0-4.0); HEMATOCRIT 36.4 % (34.0-47.0); LYMPH % 14.2 % (20.0-40.0); MEAN CELL VOLUME 104.8 fl (81.0-99.0); MEAN CORPUSCULAR HEMOGLOBIN 35.4 pg (27.0-31.0); MEAN CORPUSCULAR HGB CONC 33.8 g/dL (33.0-37.0); MEAN PLATELET VOLUME 8.2 fl (7.2-11.7); MONO # 0.8 K/uL (0.0-0.8); NEUT # 5.1 K/uL (1.8-7.0); NEUT % 72.9 % (50.0-75.0); NRBC % 0.1 % (0.0-0.0); RED CELL DISTRIBUTION WIDTH 13.9 % (11.5-14.5); WHITE BLOOD COUNT 7.1 K/uL (4.8-10.8)
[2017-08-14 00:57] LABS: ALB/GLOB RATIO 1.2 (1.0-2.1); ALCOHOL SERUM < 10 mg/dl (0-10); ALKALINE PHOSPHATASE 72 U/L (38-126); ALT/SGPT 24 U/L (9-52); AST/SGOT 24 U/L (14-36); BILIRUBIN,TOTAL 0.7 mg/dl (0.2-1.3); BLOOD UREA NITROGEN 15 mg/dl (7-17); CALCIUM 8.8 mg/dL (8.4-10.2); CARBON DIOXIDE 30 mmol/L (22-30); CHLORIDE 101 mmol/L (98-107); GFR AFRICAN-AMERICAN > 60; GLUCOSE,RANDOM 159 mg/dL (65-105); POTASSIUM 3.6 MMOL/L (3.6-5.0); SODIUM 140 mmol/l (132-148)
[2017-08-14 02:27] VITALS: O2SAT 99
[2017-08-14] MEDS ORDERED: Magnesium Hydroxide Susp 30 ml UD PO PRN (02:58)
[2017-08-14] MEDS ORDERED: Bismuth Subsalicylate 262 mg/15 ml Sus (240 ml) PO PRN (02:58)
[2017-08-14] MEDS ORDERED: Alum-Mag Hydrox-Simethicone Susp (30 mL) PO PRN (02:58)
--- NOTE | 2017-08-14 03:13 | PCM.BM ---
<Zonia Means - Last Filed: 08/14/17 03:11> Treatment Plan Problems - Problems identified on initial assessmt Cognitive loss/dementia Date Initiated: 08/14/17 Time Initiated: 03:12 Assessment reference: NA Status: Active Treatment assets and liabiliti Patient Assests: good support system Patient Liabilities: imparied memory, language/speech - Milieu Protocol Maintain good personal hygiene: daily Encourage regular showers, daily Remind patient to perform daily oral care, daily Assist patient to perform ADL's Conduct patient checks and document Observation sheet: Q15 minutes Maintain personal safety: every shift Educate patient to report safety concerns to staff, every shift Monitor environment for contraband/sharps Medication safety: Monitor for expected outcome, potential side effects: every shift, Assess barriers to learning: every shift, Assess readiness for medication education: every shift <Sarah Escobar - Last Filed: 08/14/17 12:27> - Diagnosis (1) Dementia with behavioral disturbance Status: Acute Interventions: Medication management, Individual and group therapy, Psychoeducation 08/14/17 12:28 (2) Psychosis Status: Acute Interventions: Medication management, Individual and group therapy, Psychoeducation 08/14/17 12:28 <Jose Alfredo Molina - Last Filed: 08/15/17 09:59> Family Contact Family contact: Patient agrees to contact, Family has been contacted by patient , Telephone contact initiated by staff Family contact name: Adelia Pacheco ([facility], ) Family contacted how many times per week?: 4 Family contact comment: Adelia reported that pt recently has been misplacing things, wondering and hoarding. Adelia reported that pt's memory and cognitive capacity has been deteriorating for the past 2 years. Adelia denied that pt had a prior psych history, but stated that pt's mother from complicationd from Dementia at the age of 90. Adelia is fearful that pt will be hit by a car and does not feel that she can return home by herself at this time. - Goals for Treatment Patient goals for treatment: Pt not oriented, unable to participate. Patient's family/SO goals for treatment: Family would like pt to become more behaviorally controlled and review for most appropriate placement. Discharge/Continuing Care - Education Needs Education Needs: Family Medication, Family Diagnosis/Disease Process, Family Coping Skills, Family Placement options, Family Community resources, Family Aftercare Safety Plan, Patient Medication, Patient Diagnosis/Disease Process, Patient Coping Skills, Patient Placement options, Patient Community resources, Patient Aftercare Safety Plan - Discharge Discharge Criteria: Tolerates medication w/o severe side effects, Free of agitation, Normal sleep pattern, Reduction of target symptoms Discharge to:: Home, Assisted, With Family - Treatment Team Participation Discussed with Family/SO: Yes Was Patient/Family/SO present at Treatment Team Meeting: Yes <Iva Randolph - Last Filed: 08/16/17 12:22> Discharge/Continuing Care - Additional Comments 08/16/17 12:23 Pt seen and discussed in team meeting. Reason for admission discussed and reviewed with pt. Pt reported she's in the hospital because she fall at home. Nursery Worker inquired about the paranoid and pt stated "I felt like they are trying to lock me in." Pt unable to state who "they" are. Pt's medical and social issues reviewed. Pt reported she resides alone but that both of her daughters visit often. Pt also reported that she received home care services daily, but cannot recall how many hours. Pt reported that services are via [employer]. Pt's medications reviewed and discussed. Nursery Worker inquired about NH placement , pt adamantly refused stating "No because i have family." Tx plan discussed and reviewed with pt. Pt is agreeable to remain on the unit until insurance underwriter sales reaches out to daughters and case is discussed at length. - Treatment Team Participation Discussed with Family/SO: No (Pt informed via telephone by Diogenes OSPINA ) <Liza Bacon - Last Filed: 08/23/17 14:00> Discharge/Continuing Care - Education Needs Education Needs: Patient Medication, Patient Coping Skills, Patient Placement options, Patient Community resources, Patient Aftercare Safety Plan - Discharge Discharge Criteria: Tolerates medication w/o severe side effects, Free of Suicidal thoughts, Normal sleep pattern, Ability to care for self, Reduction of target symptoms - Treatment Team Participation Patient/Family/SO Statement: 08/23/17 13:58 Patient was asleep during treatment team and did not attend. Patient to be met with at later time.
[2017-08-14 08:31] LABS: T4 6.94 ug/dl (5.5-11.0)
[2017-08-14 08:44] LABS: IRON 72 ug/dL (37-170)
[2017-08-14 08:45] LABS: THYROID STIMULATING HORMONE 2.25 mIU/ML (0.46-4.68)
--- NOTE | 2017-08-14 12:37 | PCM.PSYCH ---
Initial Psychiatric Evaluation - Initial Psychiatric Evaluation Type of Admission: Voluntary Legal Status: Other ([facility]) Chief Complaint (in patient's own words): "I'm in my apartment." Patient's Reaction to Hospitalization: Patient is a poor historian due to chronic dementia. History obtained from daughter who gave the curriculum writer to modify the medications as medically and psychiatrically indicated. HPI: 87 yo female w/ history of dementia, BIB EMS due to falling and having leg and back pain. Patient denies psychiatric symptoms including depression, anxiety, hallucinations. She denies SI/HI. She does not know where she is or why she is in the hospital. As per daughter, Adelia [phone], patient has had worsening dementia, she is not able to care for herself, wanders around, has poor appetite, is non- compliant with medcations and is not sleeping well. She also reports that the patient is paranoid and thinks others are stealing from her. PPHx: No prior psychiatric admissions, h/o dementia PMHx: Arthritis, HTN, HLD ALL: PCN SHx: Lives alone, but can not care for herself at this time. No drugs/etoh. Current Medications: Active Medications Generic Name Dose Route Start Last Admin Trade Name Freq PRN Reason Stop Dose Admin Acetaminophen 650 mg 08/14/17 02:58 Tylenol 325mg Tab PO Q4 PRN Pain, moderate (4-7) Al Hydrox/Mg Hydrox/Simethicone 30 ml 08/14/17 02:58 Maalox Plus 30 Ml PO Q4 PRN Dyspepsia Bismuth Subsalicylate 524 mg 08/14/17 02:58 Pepto-Bismol PO Q4 PRN Diarrhea Donepezil HCl 5 mg 08/14/17 22:00 Aricept PO HS RAMY Lorazepam 0.5 mg 08/14/17 02:58 Ativan PO 08/28/17 02:59 HS PRN Insomnia Lorazepam 0.5 mg 08/14/17 02:58 Ativan PO 08/28/17 02:59 Q6 PRN Anixety/Agitation Magnesium Hydroxide 30 ml 08/14/17 02:58 Milk Of Magnesia PO HS PRN Constipation Memantine 5 mg 08/14/17 12:45 Namenda PO DAILY RAMY Risperidone 0.5 mg 08/14/17 22:00 Risperdal Tab PO HS [facility] Past Psychiatric History - Past Psychiatric History Previous Treatment History: None Pertinent Medical Hx (Current Medical&Sleep Prob, Allergies): Allergies Allergy/AdvReac Type Severity Reaction Status Date / Time Penicillins Allergy RASH Verified 07/24/17 15:20 Ergocalciferol (Vitamin D2) [Vitamin D] 50,000 unit PO QWK 05/28/16 Apache-3 Acid Ethyl Esters 1 gm PO BID 05/28/16 amLODIPine [Norvasc] 5 mg PO DAILY 05/28/16 Alprazolam [Xanax] 0.5 mg PO BID PRN 08/05/17 Atorvastatin [Lipitor] 10 mg PO HS 08/05/17 Donepezil [Aricept] 10 mg PO HS 08/05/17 Lubiprostone [Amitiza] 24 mcg PO BID 08/05/17 Nitrofurantoin Macrocrystals [Macrobid] 100 mg PO BID #14 cap 08/05/17 Review of Systems - Neurological Neurological: Behavioral Changes, Confusion, Memory Loss - Psychiatric Psychiatric: As Per HPI, Abnormal Sleep Pattern, Behavioral Changes, Change in Appetite, Memory Loss, Paranoia Mental Status Examination - Personal Presentation Personal Presentation: Looks stated age - Affect Affect: Constricted - Motor Activity Motor Activity: Calm - Reliability in Providing Information Reliability in Providing Information: Poor, due to cognitve impairment - Speech Speech: Irrelevant, Coherent - Mood Mood: Neutral - Formal Thought Process Formal Thought Process: Paranoia - Hallucinations/Delusions Additional comments: Denies AH/VH, +Paranoia - Obsessions/Compulsions Obsessions: No Compulsions: No - Cognitive Functions Orientation: Person Attention/Concentration: Easily distracted Judgement: Imparied, as evidence by: Poor judgement, Imparied, as evidence by: Lack of insight into illness Memory: Recent impaired, as evidence by: Inability to recall events of the day, Recent imparied as evidence by:Inability to complete 3/3 object recall, Remote impaired as evidenced by: Inability to recall sig life events, Remote impaired as evidenced by: Inability to recall historical events - Risk Risk: Falls, Diminished functioning - Strength & Assets Inventory Strength & Assets Inventory: Family support - Limitations Limitations: Decreased memory, recent DSM 5 DX - DSM 5 DSM 5 Diagnosis: Dementia w/ Behavioral Disturbances, Psychosis unspecified - Recommended/Plan of Treatment Treatment Recommendations and Plan of Treatment: Dementia w/ Behavioral Disturbances, Psychosis unspecified -Admit to geriatric psychiatry unit -Individual and group therapy -Start Aricept 5 mg PO HS, Namenda 5 mg PO Daily -Start Risperdal 0.25 mg PO HS -Medicine consult -Collateral history obtained -Disposition planning Projected ELOS: 5-7 days Discharge Plan and Discharge Criteria: Discharge when psychiatrically stable
--- NOTE | 2017-08-14 13:08 | RAD ---
HISTORY: admit COMPARISON: Comparison made with chest radiograph 08/05/2017. Comparison also made with CTA chest dated 10/09/2009. FINDINGS: LUNGS: No focal consolidation PLEURA: Minor biapical pleural thickening. No apparent Pneumothorax apparent. CARDIOVASCULAR: Heart size within range of normal. Aorta is ectatic and uncoiled. OSSEOUS STRUCTURES: No significant abnormalities. VISUALIZED UPPER ABDOMEN: Normal. OTHER FINDINGS: None. IMPRESSION: No focal consolidation.
[2017-08-14] MEDS ORDERED: Ergocalciferol 50,000 Intl Units Cap PO SCH (17:45)
--- NOTE | 2017-08-14 18:26 | CARD ---
APPROVED REPORT EKG Measurement Heart [id number] ID [id number] <Conclusion> Normal sinus rhythm ST & T wave abnormality, consider anterolateral ischemia Prolonged QT Abnormal ECG
[2017-08-14 19:40] LABS: RBC URINE < 1 /hpf (0-3); URINE BILIRUBIN NEGATIVE (NEGATIVE); URINE BLOOD NEGATIVE (NEGATIVE); URINE COLOR STRAW (YELLOW); URINE GLUCOSE (UA) NEG (Normal); URINE KETONE NEGATIVE (NEGATIVE); URINE LEUKOCYTE ESTERASE NEG Leu/uL (Negative); URINE PROTEIN NEGATIVE (NEGATIVE); URINE UROBILINOGEN 0.2-1.0 mg/dL (0.2-1.0); WBC URINE 1 /hpf (0-5)
[2017-08-15] MEDS: Ergocalciferol 50,000 Intl Units Cap PO SCH (09:11)
[2017-08-15] MEDS: Omega-3-Acid Ethyl Esters 1 GM Cap PO SCH ×2 (09:12→17:01)
--- NOTE | 2017-08-15 09:24 | PCM.PYCHPN ---
Psychiatric Progress Note - Psychiatric Progress Note Patient seen today, length of contact: Patient evaluated, chart reviewed, case discussed with team Patient Chief Complaint: "My food is cold." Problems Identified/Issues Discussed: A + O x 1. She does not understand why she is in the hospital. She is irritable towards staff and complains about several things, such as the temperature of her food. She continues to be paranoid and believes that people are intentionally trying to trip her so she will fall on the floor. Denies AH/ VH. Medication Change: Yes (Increase Risperdal to 0.25 mg PO BID) Medical Record Reviewed: Yes Consults ordered or reviewed: Medicine consult Mental Status Examination - Cognitive Function Orientation: Person Memory: Impaired Attention: Poor Concentration: Poor Association: Loose Fund of Knowledge: Poor Decription of patient's judgement and insights: Chronic poor I/J due to dementia - Mood Mood: Neutral - Affect Affect: Constricted (Irritable) - Speech Speech: Soft - Formal Thought Process Formal Thought Process: Paranoia Psychotic Thoughts and Behaviors: +Paranoia - Suicidal Ideation Suicidal Ideation: No - Homicidal Ideation Homicidal Ideation: No Goal/Treatment Plan - Goal/Treatment Plan Need for Continued Stay: Remain at risks for inpatient hospitalization, Discharge may exacerbated symptoms, Severe functional impairment Progress Toward Problem(s) and Goals/Treatment Plan: Dementia w/ Behavioral Disturbances, Psychosis unspecified; patient needs continued hospitalization for treatment and safety -Individual and group therapy -Continue Aricept 5 mg PO HS, Namenda 5 mg PO Daily -Increase Risperdal to 0.25 mg PO BID -Medicine consult -Collateral history obtained -Disposition planning Estimated Date of D/C: 08/19/17
[2017-08-15 12:33] LABS: FOLATE 12.9 ng/mL
--- NOTE | 2017-08-15 16:18 | CP.PCM.CON ---
History of Present Illness - History of Present Illness History of Present Illness: This is an 87 y/o female known to me with hx of HTN OA RA dementia was admitted after a fall at home as she claims she was very anxious at home. Recently she was noted to have depressive symptoms. Stayed mostly at her apartment and noted decreased intake and weight loss. she has been living alone in a [facility]. She has two daughters but she refused to live with them or near them. Review of Systems - Psychiatric Psychiatric: Anxiety, Confusion, Depression, Hopelessness - Endocrine Endocrine: Fatigue Past Patient History - Infectious Disease Hx of Infectious Diseases: None - Past Social History Alcohol: None Drugs: Denies - CARDIAC Hx Cardiac Disorders: Yes Hx Hypercholesterolemia: Yes Hx Hypertension: Yes - PULMONARY Hx Asthma: Yes - NEUROLOGICAL Hx Dementia: Yes Hx Seizures: No - HEENT Hx Glaucoma: Yes - HEMATOLOGICAL/ONCOLOGICAL Hx Human Immunodeficiency Virus (HIV): No - MUSCULOSKELETAL/RHEUMATOLOGICAL Hx Arthritis: Yes Hx Falls: No - GASTROINTESTINAL Hx Gastritis: Yes - GENITOURINARY/GYNECOLOGICAL Hx Sexually Transmitted Disorders: No - PSYCHIATRIC Hx Anxiety: Yes Hx Substance Use: No - SURGICAL HISTORY Hx Appendectomy: Yes - ANESTHESIA Hx Anesthesia: Yes Hx Anesthesia Reactions: No Meds Allergies/Adverse Reactions: Allergies Allergy/AdvReac Type Severity Reaction Status Date / Time egg Allergy Mild RASH Verified 08/15/17 14:56 Penicillins Allergy RASH Verified 07/24/17 15:20 - Medications Medications: Current Medications Acetaminophen (Tylenol 325mg Tab) 650 mg PO Q4 PRN PRN Reason: Pain, moderate (4-7) Al Hydrox/Mg Hydrox/Simethicone (Maalox Plus 30 Ml) 30 ml PO Q4 PRN PRN Reason: Dyspepsia Amlodipine Besylate (Norvasc) 5 mg PO DAILY [facility] Last Admin: 08/15/17 09:13 Dose: 5 mg Atorvastatin Calcium (Lipitor) 10 mg PO HS [facility] Last Admin: 08/14/17 21:22 Dose: 10 mg Bismuth Subsalicylate (Pepto-Bismol) 524 mg PO Q4 PRN PRN Reason: Diarrhea Donepezil HCl (Aricept) 5 mg PO HS [facility] Last Admin: 08/14/17 21:22 Dose: 5 mg Donepezil HCl (Aricept) 10 mg PO HS [facility] Last Admin: 08/14/17 21:22 Dose: 10 mg Ergocalciferol (Drisdol 50,000 Intl Units Cap) 1 cap PO QWK@SUN [facility] Last Admin: 08/15/17 09:11 Dose: 1 cap Home Med (Lubiprostone [Amitiza]) 24 mcg PO BID [facility] Lorazepam (Ativan) 0.5 mg PO HS PRN PRN Reason: Insomnia Stop: 08/28/17 02:59 Lorazepam (Ativan) 0.5 mg PO Q6 PRN PRN Reason: Anixety/Agitation Stop: 08/28/17 02:59 Last Admin: 08/14/17 14:55 Dose: 0.5 mg Magnesium Hydroxide (Milk Of Magnesia) 30 ml PO HS PRN PRN Reason: Constipation Memantine (Namenda) 5 mg PO DAILY [facility] Last Admin: 08/15/17 09:12 Dose: 5 mg Oitin-0-Reos Ethyl Esters (Lovaza) 1 gm PO BID [facility] Last Admin: 08/15/17 09:12 Dose: 1 gm Risperidone (Risperdal Tab) 0.25 mg PO BID [facility] Last Admin: 08/15/17 09:13 Dose: 0.25 mg Physical Exam - Head Exam Head Exam: NORMAL INSPECTION - Eye Exam Eye Exam: Normal appearance - ENT Exam ENT Exam: Mucous Membranes Moist - Respiratory Exam Respiratory Exam: Clear to Auscultation Bilateral - Cardiovascular Exam Cardiovascular Exam: REGULAR RHYTHM - GI/Abdominal Exam GI & Abdominal Exam: Normal Bowel Sounds - Neurological Exam Neurological exam: Altered, CN II-XII Intact - Psychiatric Exam Psychiatric exam: Anxious, Depressed Results - Vital Signs Recent Vital Signs: Last Vital Signs Temp 98.1 F 08/15/17 16:11 Pulse 80 08/15/17 16:11 Resp 20 08/15/17 16:11 BP 132/71 08/15/17 16:11 Pulse Ox 99 08/14/17 02:24 - Labs Result Diagrams: 08/13/17 23:59 08/13/17 23:59 Labs: Laboratory Results - last 24 hr 08/14/17 08/14/17 08/14/17 07:00 08:30 16:00 Hemoglobin A1c 5.8 Folate 12.9 Urine Color Urine Clarity Urine pH Ur Specific Hoffman Urine Protein Urine Glucose (UA) Urine Ketones Urine Blood Urine Nitrate Urine Bilirubin Urine Urobilinogen Ur Leukocyte Esterase Urine RBC (Auto) Urine Microscopic WBC Urine Opiates Screen Negative Urine Methadone Screen Negative Ur Barbiturates Screen Negative Ur Phencyclidine Scrn Negative Ur Amphetamines Screen Negative U Benzodiazepines Scrn Negative U Oth Cocaine Metabols Negative U Cannabinoids Screen Negative 08/14/17 18:45 Hemoglobin A1c Folate Urine Color Straw Urine Clarity Clear Urine pH 7.0 Ur Specific Hoffman 1.005 Urine Protein Negative Urine Glucose (UA) Neg Urine Ketones Negative Urine Blood Negative Urine Nitrate Negative Urine Bilirubin Negative Urine Urobilinogen 0.2-1.0 Ur Leukocyte Esterase Neg Urine RBC (Auto) < 1 Urine Microscopic WBC 1 Urine Opiates Screen Urine Methadone Screen Ur Barbiturates Screen Ur Phencyclidine Scrn Ur Amphetamines Screen U Benzodiazepines Scrn U Oth Cocaine Metabols U Cannabinoids Screen Assessment & Plan (1) Physical debility Status: Acute (2) Dementia Status: Acute (3) Anxiety and depression Status: Acute (4) Rheumatoid arthritis Status: Acute (5) Hypertension Status: Acute (6) Hyperlipidemia Status: Acute - Assessment and Plan (Free Text) Plan: cont all medsa caloric count MV! ensure megace
[2017-08-16] MEDS: Omega-3-Acid Ethyl Esters 1 GM Cap PO SCH ×2 (09:19→16:40)
--- NOTE | 2017-08-16 09:44 | PCM.PYCHPN ---
Psychiatric Progress Note - Psychiatric Progress Note Patient seen today, length of contact: Patient evaluated, chart reviewed, case discussed with team Patient Chief Complaint: "I'm good." Problems Identified/Issues Discussed: A + O x 1. Patient is calm and cooperative w/o current complaints. She reports that her mood is "good" and denies current paranoia towards signwriter or others. She denies current AH/VH/paranoia/delusions. Medication Change: No Medical Record Reviewed: Yes Consults ordered or reviewed: Medicine consult Mental Status Examination - Cognitive Function Orientation: Person Memory: Impaired Attention: Poor Concentration: Poor Association: Loose Fund of Knowledge: Poor Decription of patient's judgement and insights: Chronic poor I/J due to dementia - Mood Mood: Neutral - Affect Affect: Constricted (Irritable) - Speech Speech: Soft - Formal Thought Process Formal Thought Process: Loosening of associations Psychotic Thoughts and Behaviors: Denies AH/VH/paranoia/delusions - Suicidal Ideation Suicidal Ideation: No - Homicidal Ideation Homicidal Ideation: No Goal/Treatment Plan - Goal/Treatment Plan Need for Continued Stay: Remain at risks for inpatient hospitalization, Discharge may exacerbated symptoms, Severe functional impairment Progress Toward Problem(s) and Goals/Treatment Plan: Dementia w/ Behavioral Disturbances, Psychosis unspecified; patient is starting to improve clinically. -Individual and group therapy -Continue Aricept 5 mg PO HS, Namenda 5 mg PO Daily -Continue Risperdal 0.25 mg PO BID -Medicine consult -Collateral history obtained -Disposition planning Estimated Date of D/C: 08/19/17
--- NOTE | 2017-08-17 08:55 | PCM.PYCHPN ---
Psychiatric Progress Note - Psychiatric Progress Note Patient seen today, length of contact: Patient evaluated, chart reviewed, case discussed with team Patient Chief Complaint: "I'm good." Problems Identified/Issues Discussed: A + O x 1. Patient was roaming the hallways yesterday and took various items from different people including a computer mouse and other patient's clothes ( which were found and returned unused). Patient is calm and cooperative w/o current complaints. She reports that her mood is "good". She denies current paranoia towards rfp writer or others, but it is unclear why she is taking others belongings. She denies current AH/VH. Medication Change: Yes (Change Risperdal to 0.5 mg PO Daily@1300) Medical Record Reviewed: Yes Consults ordered or reviewed: Medicine consult, Psychology consult pending Mental Status Examination - Cognitive Function Orientation: Person Memory: Impaired Attention: Poor Concentration: Poor Association: Loose Fund of Knowledge: Poor Decription of patient's judgement and insights: Chronic poor I/J due to dementia - Mood Mood: Neutral - Affect Affect: Constricted - Speech Speech: Soft - Formal Thought Process Formal Thought Process: Loosening of associations Psychotic Thoughts and Behaviors: Denies AH/VH/paranoia/delusions - Suicidal Ideation Suicidal Ideation: No - Homicidal Ideation Homicidal Ideation: No Goal/Treatment Plan - Goal/Treatment Plan Need for Continued Stay: Remain at risks for inpatient hospitalization, Discharge may exacerbated symptoms, Severe functional impairment Progress Toward Problem(s) and Goals/Treatment Plan: Dementia w/ Behavioral Disturbances, Psychosis unspecified; patient needs continued hospitalization for treatment and safety. -Individual and group therapy -Continue Aricept 10 mg PO HS, Namenda 5 mg PO Daily -Change Risperdal to 0.5 mg PO Daily@1300 -Psychology consult pending -Medicine consult -Collateral history obtained -Disposition planning Estimated Date of D/C: 08/23/17
[2017-08-17] MEDS: Omega-3-Acid Ethyl Esters 1 GM Cap PO SCH ×2 (09:24→16:53)
--- NOTE | 2017-08-17 09:46 | CP.PCM.PN ---
Subjective - Date & Time of Evaluation Date of Evaluation: 08/16/17 Time of Evaluation: 10:00 - Subjective Subjective: Patient does not feel well Stays mostly in bed Has poor intake Has no fever. Objective - Vital Signs/Intake and Output Vital Signs (last 24 hours): Temp Pulse Resp BP Pulse Ox 97.2 F L 87 20 154/81 H 99 08/17/17 06:00 08/17/17 09:25 08/17/17 06:00 08/17/17 09:25 08/14/17 02:24 - Medications Medications: Current Medications Acetaminophen (Tylenol 325mg Tab) 650 mg PO Q4 PRN PRN Reason: Pain, moderate (4-7) Al Hydrox/Mg Hydrox/Simethicone (Maalox Plus 30 Ml) 30 ml PO Q4 PRN PRN Reason: Dyspepsia Amlodipine Besylate (Norvasc) 5 mg PO DAILY [facility] Last Admin: 08/17/17 09:25 Dose: 5 mg Atorvastatin Calcium (Lipitor) 10 mg PO HS [facility] Last Admin: 08/16/17 21:12 Dose: 10 mg Bismuth Subsalicylate (Pepto-Bismol) 524 mg PO Q4 PRN PRN Reason: Diarrhea Docusate Sodium (Colace) 100 mg PO BID PRN PRN Reason: Constipation Donepezil HCl (Aricept) 10 mg PO HS [facility] Last Admin: 08/16/17 21:12 Dose: 10 mg Ergocalciferol (Drisdol 50,000 Intl Units Cap) 1 cap PO QWK@SUN [facility] Last Admin: 08/15/17 09:11 Dose: 1 cap Lorazepam (Ativan) 0.5 mg PO HS PRN PRN Reason: Insomnia Stop: 08/28/17 02:59 Lorazepam (Ativan) 0.5 mg PO Q6 PRN PRN Reason: Anixety/Agitation Stop: 08/28/17 02:59 Last Admin: 08/16/17 14:24 Dose: 0.5 mg Magnesium Hydroxide (Milk Of Magnesia) 30 ml PO HS PRN PRN Reason: Constipation Memantine (Namenda) 5 mg PO DAILY [facility] Last Admin: 08/17/17 09:26 Dose: 5 mg [id number] Ethyl Esters (Lovaza) 1 gm PO BID [facility] Last Admin: 08/17/17 09:24 Dose: 1 gm Risperidone (Risperdal Tab) 0.5 mg PO DAILY@1300 RAMY - Labs Labs: 08/13/17 23:59 08/13/17 23:59 - Head Exam Head Exam: NORMAL INSPECTION - Eye Exam Eye Exam: Normal appearance - ENT Exam ENT Exam: Mucous Membranes Moist - Respiratory Exam Respiratory Exam: Clear to Ausculation Bilateral - Cardiovascular Exam Cardiovascular Exam: REGULAR RHYTHM - GI/Abdominal Exam GI & Abdominal Exam: Normal Bowel Sounds - Neurological Exam Neurological Exam: Altered, Awake Assessment and Plan (1) Physical debility Status: Acute (2) Dementia Status: Acute (3) Anxiety and depression Status: Acute (4) Rheumatoid arthritis Status: Acute (5) Hypertension Status: Acute (6) Hyperlipidemia Status: Acute - Assessment and Plan (Free Text) Plan: Cont meds Cont tx caloric count cont meds
--- NOTE | 2017-08-17 09:47 | CP.PCM.PN ---
Subjective - Date & Time of Evaluation Date of Evaluation: 08/17/17 Time of Evaluation: 09:46 - Subjective Subjective: Patient stays mostly in bed. Has poor intake Noted increasing depressive sx Objective - Vital Signs/Intake and Output Vital Signs (last 24 hours): Temp Pulse Resp BP Pulse Ox 97.2 F L 87 20 154/81 H 99 08/17/17 06:00 08/17/17 09:25 08/17/17 06:00 08/17/17 09:25 08/14/17 02:24 - Medications Medications: Current Medications Acetaminophen (Tylenol 325mg Tab) 650 mg PO Q4 PRN PRN Reason: Pain, moderate (4-7) Al Hydrox/Mg Hydrox/Simethicone (Maalox Plus 30 Ml) 30 ml PO Q4 PRN PRN Reason: Dyspepsia Amlodipine Besylate (Norvasc) 5 mg PO DAILY [facility] Last Admin: 08/17/17 09:25 Dose: 5 mg Atorvastatin Calcium (Lipitor) 10 mg PO HS [facility] Last Admin: 08/16/17 21:12 Dose: 10 mg Bismuth Subsalicylate (Pepto-Bismol) 524 mg PO Q4 PRN PRN Reason: Diarrhea Docusate Sodium (Colace) 100 mg PO BID PRN PRN Reason: Constipation Donepezil HCl (Aricept) 10 mg PO HS [facility] Last Admin: 08/16/17 21:12 Dose: 10 mg Ergocalciferol (Drisdol 50,000 Intl Units Cap) 1 cap PO QWK@SUN [facility] Last Admin: 08/15/17 09:11 Dose: 1 cap Lorazepam (Ativan) 0.5 mg PO HS PRN PRN Reason: Insomnia Stop: 08/28/17 02:59 Lorazepam (Ativan) 0.5 mg PO Q6 PRN PRN Reason: Anixety/Agitation Stop: 08/28/17 02:59 Last Admin: 08/16/17 14:24 Dose: 0.5 mg Magnesium Hydroxide (Milk Of Magnesia) 30 ml PO HS PRN PRN Reason: Constipation Memantine (Namenda) 5 mg PO DAILY [facility] Last Admin: 08/17/17 09:26 Dose: 5 mg Lllkq-6-Baen Ethyl Esters (Lovaza) 1 gm PO BID [facility] Last Admin: 08/17/17 09:24 Dose: 1 gm Risperidone (Risperdal Tab) 0.5 mg PO DAILY@1300 [facility] - Labs Labs: 08/13/17 23:59 08/13/17 23:59 - Head Exam Head Exam: NORMAL INSPECTION - Eye Exam Eye Exam: Normal appearance - ENT Exam ENT Exam: Mucous Membranes Moist - Respiratory Exam Respiratory Exam: Clear to Ausculation Bilateral - Cardiovascular Exam Cardiovascular Exam: REGULAR RHYTHM - GI/Abdominal Exam GI & Abdominal Exam: Normal Bowel Sounds - Neurological Exam Neurological Exam: Altered, Awake Assessment and Plan (1) Physical debility Status: Acute (2) Dementia Status: Acute (3) Anxiety and depression Status: Acute (4) Rheumatoid arthritis Status: Acute (5) Hypertension Status: Acute (6) Hyperlipidemia Status: Acute - Assessment and Plan (Free Text) Plan: start megace ensure caloric count.
[2017-08-17] MEDS: Megestrol Acetate 40 mg/ml Cup PO SCH (13:15)
[2017-08-18] MEDS: Omega-3-Acid Ethyl Esters 1 GM Cap PO SCH ×2 (08:22→17:21)
[2017-08-18] MEDS: Megestrol Acetate 40 mg/ml Cup PO SCH (08:22)
--- NOTE | 2017-08-18 08:37 | PCM.PYCHPN ---
Psychiatric Progress Note - Psychiatric Progress Note Patient seen today, length of contact: Patient evaluated, chart reviewed, case discussed with team Patient Chief Complaint: "I'm good." Problems Identified/Issues Discussed: A + O x 1. Patient is disoriented w/ poor insight at baseline due to dementia. She did not take anyone's belongings yesterday. She reports that her mood is "okay", denies depression/anxiety. She denies acute paranoia. She denies current AH/VH. Medication Change: No Medical Record Reviewed: Yes Consults ordered or reviewed: Medicine consult, Psychology consult pending Mental Status Examination - Cognitive Function Orientation: Person Memory: Impaired Attention: Poor Concentration: Poor Association: Loose Fund of Knowledge: Poor Decription of patient's judgement and insights: Chronic poor I/J due to dementia - Mood Mood: Neutral - Affect Affect: Constricted - Speech Speech: Soft - Formal Thought Process Formal Thought Process: Loosening of associations Psychotic Thoughts and Behaviors: Denies AH/VH/paranoia/delusions - Suicidal Ideation Suicidal Ideation: No - Homicidal Ideation Homicidal Ideation: No Goal/Treatment Plan - Goal/Treatment Plan Need for Continued Stay: Remain at risks for inpatient hospitalization, Severe functional impairment Progress Toward Problem(s) and Goals/Treatment Plan: Dementia w/ Behavioral Disturbances, Psychosis unspecified; patient needs continued hospitalization for treatment and safety. -Individual and group therapy -Continue Aricept 10 mg PO HS, Namenda 5 mg PO Daily -Continue Risperdal 0.5 mg PO Daily@1300 -Psychology consult pending -Medicine consult -Collateral history obtained -Disposition planning Estimated Date of D/C: 08/20/17 - Smoking Cessation Smoking Cessation Initiated: No Reason for not providing: Not indicated
--- NOTE | 2017-08-19 08:11 | PCM.PYCHPN ---
Psychiatric Progress Note - Psychiatric Progress Note Patient seen today, length of contact: Patient evaluated, chart reviewed, case discussed with team Patient Chief Complaint: "I'm good." Problems Identified/Issues Discussed: A + O x 1. Patient is disoriented w/ poor insight at baseline due to dementia. She denies current depression/anxiety/hallucinations/paranoia. Medication Change: No Medical Record Reviewed: Yes Consults ordered or reviewed: Medicine consult Mental Status Examination - Cognitive Function Orientation: Person Memory: Impaired Attention: Poor Concentration: Poor Association: Loose Fund of Knowledge: Poor Decription of patient's judgement and insights: Chronic poor I/J due to dementia - Mood Mood: Neutral - Affect Affect: Broad - Speech Speech: Soft - Formal Thought Process Formal Thought Process: Loosening of associations (Due to chronic dementia) Psychotic Thoughts and Behaviors: Denies AH/VH/paranoia/delusions - Suicidal Ideation Suicidal Ideation: No - Homicidal Ideation Homicidal Ideation: No Goal/Treatment Plan - Goal/Treatment Plan Need for Continued Stay: Remain at risks for inpatient hospitalization, Severe functional impairment Progress Toward Problem(s) and Goals/Treatment Plan: Dementia w/ Behavioral Disturbances, Psychosis unspecified; patient is at her baseline of functioning and is psychiatrically stable to start referral process for retirement placement. -Individual and group therapy -Continue Aricept 10 mg PO HS, Namenda 5 mg PO Daily -Continue Risperdal 0.5 mg PO Daily@1300 -Continue Remeron 7.5 mg PO HS -Medicine consult -Collateral history obtained -Disposition planning Estimated Date of D/C: 08/23/17
[2017-08-19] MEDS: Megestrol Acetate 40 mg/ml Cup PO SCH (08:58)
[2017-08-19] MEDS: Omega-3-Acid Ethyl Esters 1 GM Cap PO SCH ×2 (08:58→19:30)
--- NOTE | 2017-08-20 08:05 | PCM.PYCHPN ---
Psychiatric Progress Note - Psychiatric Progress Note Patient seen today, length of contact: Patient evaluated, chart reviewed, case discussed with team Patient Chief Complaint: "I'm good." Problems Identified/Issues Discussed: No new events overnight. A + O x 1. Patient is disoriented w/ poor insight at baseline due to dementia. She denies current depression/anxiety/ hallucinations/paranoia. Medication Change: No Medical Record Reviewed: Yes Consults ordered or reviewed: Medicine consult Mental Status Examination - Cognitive Function Orientation: Person Memory: Impaired Attention: Poor Concentration: Poor Association: Loose Fund of Knowledge: Poor Decription of patient's judgement and insights: Chronic poor I/J due to dementia - Mood Mood: Neutral - Affect Affect: Broad - Speech Speech: Soft - Formal Thought Process Formal Thought Process: Loosening of associations (Due to chronic dementia) Psychotic Thoughts and Behaviors: Denies AH/VH/paranoia/delusions - Suicidal Ideation Suicidal Ideation: No - Homicidal Ideation Homicidal Ideation: No Goal/Treatment Plan - Goal/Treatment Plan Need for Continued Stay: Severe functional impairment Progress Toward Problem(s) and Goals/Treatment Plan: Dementia w/ Behavioral Disturbances, Psychosis unspecified; patient is at her baseline of functioning and is psychiatrically stable to start referral process for half-way placement. -Individual and group therapy -Continue Aricept 10 mg PO HS, Namenda 5 mg PO Daily -Continue Risperdal 0.5 mg PO Daily@1300 -Continue Remeron 7.5 mg PO HS -Medicine consult -Collateral history obtained -Disposition planning Estimated Date of D/C: 08/27/17 - Smoking Cessation Smoking Cessation Initiated: No Reason for not providing: Not indicated
[2017-08-20] MEDS: Megestrol Acetate 40 mg/ml Cup PO SCH (09:09)
[2017-08-20] MEDS: Omega-3-Acid Ethyl Esters 1 GM Cap PO SCH ×2 (09:09→17:12)
--- NOTE | 2017-08-20 10:38 | CP.PCM.CON ---
History of Present Illness - History of Present Illness History of Present Illness: Pt is an 87 year old female admitted to the geropsych unit and referred to the advertising copy writer for evaluation. On the DRS, pt scored an overall score of 85>. Pt scored within normal limits on Attention and Conceptualization tasks. Pt's Construction and Initiation skills fell in the DEficient Range. Memory skills and new learning abilities were severely impaired. Overall 85 Attention 27 Construction 2 Conceptualization 33 Initiation 14 Memory 8> 24 hour supervision recommended. Thank you for this referral, Dr. South Past Patient History - Infectious Disease Hx of Infectious Diseases: None - Past Social History Alcohol: None Drugs: Denies - CARDIAC Hx Cardiac Disorders: Yes Hx Hypercholesterolemia: Yes Hx Hypertension: Yes - PULMONARY Hx Asthma: Yes - NEUROLOGICAL Hx Dementia: Yes Hx Seizures: No - HEENT Hx Glaucoma: Yes - HEMATOLOGICAL/ONCOLOGICAL Hx Human Immunodeficiency Virus (HIV): No - MUSCULOSKELETAL/RHEUMATOLOGICAL Hx Arthritis: Yes Hx Falls: No - GASTROINTESTINAL Hx Gastritis: Yes - GENITOURINARY/GYNECOLOGICAL Hx Sexually Transmitted Disorders: No - PSYCHIATRIC Hx Anxiety: Yes Hx Substance Use: No - SURGICAL HISTORY Hx Appendectomy: Yes - ANESTHESIA Hx Anesthesia: Yes Hx Anesthesia Reactions: No Meds Allergies/Adverse Reactions: Allergies Allergy/AdvReac Type Severity Reaction Status Date / Time egg Allergy Mild RASH Verified 08/15/17 14:56 Penicillins Allergy RASH Verified 07/24/17 15:20 - Medications Medications: Current Medications Acetaminophen (Tylenol 325mg Tab) 650 mg PO Q4 PRN PRN Reason: Pain, moderate (4-7) Al Hydrox/Mg Hydrox/Simethicone (Maalox Plus 30 Ml) 30 ml PO Q4 PRN PRN Reason: Dyspepsia Amlodipine Besylate (Norvasc) 5 mg PO DAILY [facility] Last Admin: 08/20/17 09:10 Dose: 5 mg Atorvastatin Calcium (Lipitor) 10 mg PO HS [facility] Last Admin: 08/19/17 21:07 Dose: 10 mg Bismuth Subsalicylate (Pepto-Bismol) 524 mg PO Q4 PRN PRN Reason: Diarrhea Docusate Sodium (Colace) 100 mg PO BID PRN PRN Reason: Constipation Donepezil HCl (Aricept) 10 mg PO HS [facility] Last Admin: 08/19/17 21:07 Dose: 10 mg Ergocalciferol (Drisdol 50,000 Intl Units Cap) 1 cap PO QWK@SUN [facility] Last Admin: 08/15/17 09:11 Dose: 1 cap Lorazepam (Ativan) 0.5 mg PO HS PRN PRN Reason: Insomnia Stop: 08/28/17 02:59 Lorazepam (Ativan) 0.5 mg PO Q6 PRN PRN Reason: Anixety/Agitation Stop: 08/28/17 02:59 Last Admin: 08/16/17 14:24 Dose: 0.5 mg Magnesium Hydroxide (Milk Of Magnesia) 30 ml PO HS PRN PRN Reason: Constipation Megestrol Acetate (Megace) 400 mg PO DAILY [facility] Last Admin: 08/20/17 09:09 Dose: 400 mg Memantine (Namenda) 5 mg PO DAILY [facility] Last Admin: 08/20/17 09:09 Dose: 5 mg Mirtazapine (Remeron) 7.5 mg PO HS [facility] Last Admin: 08/19/17 21:07 Dose: 7.5 mg Gjnaa-5-Nrnt Ethyl Esters (Lovaza) 1 gm PO BID [facility] Last Admin: 08/20/17 09:09 Dose: 1 gm Risperidone (Risperdal Tab) 0.5 mg PO DAILY@1300 [facility] Last Admin: 08/19/17 13:14 Dose: 0.5 mg Results - Vital Signs Recent Vital Signs: Last Vital Signs Temp 97.5 F L 08/20/17 05:57 Pulse 75 08/20/17 09:10 Resp 18 08/20/17 05:57 BP 114/67 08/20/17 09:10 Pulse Ox 99 08/14/17 02:24 - Labs Result Diagrams: 08/13/17 23:59 08/13/17 23:59
[2017-08-20] MEDS: Olopatadine 0.1% Opht SOLN OU SCH (19:05)
[2017-08-21] MEDS: Olopatadine 0.1% Opht SOLN OU SCH ×2 (08:29→18:03)
[2017-08-21] MEDS: Omega-3-Acid Ethyl Esters 1 GM Cap PO SCH ×2 (08:29→18:02)
[2017-08-21] MEDS: Megestrol Acetate 40 mg/ml Cup PO SCH (08:30)
--- NOTE | 2017-08-21 12:44 | PCM.PYCHPN ---
Psychiatric Progress Note - Psychiatric Progress Note Patient seen today, length of contact: Patient evaluated, chart reviewed, case discussed with team Patient Chief Complaint: i am ok Problems Identified/Issues Discussed: pt on evaluation, calm, cooperative with staff, Patient is disoriented w/ poor insight at baseline due to dementia. She denies current depression/anxiety/ hallucinations/paranoia. Medication Change: No Medical Record Reviewed: Yes Mental Status Examination - Cognitive Function Orientation: Person Memory: Impaired Attention: Poor Concentration: Poor Association: Loose Fund of Knowledge: Poor - Mood Mood: Neutral - Affect Affect: Broad - Speech Speech: Soft - Formal Thought Process Formal Thought Process: Loosening of associations (Due to chronic dementia) - Suicidal Ideation Suicidal Ideation: No - Homicidal Ideation Homicidal Ideation: No Goal/Treatment Plan - Goal/Treatment Plan Need for Continued Stay: Severe functional impairment Progress Toward Problem(s) and Goals/Treatment Plan: continue current management Estimated Date of D/C: 08/27/17
[2017-08-22] MEDS: Olopatadine 0.1% Opht SOLN OU SCH ×2 (09:25→16:12)
[2017-08-22] MEDS: Megestrol Acetate 40 mg/ml Cup PO SCH (09:25)
[2017-08-22] MEDS: Ergocalciferol 50,000 Intl Units Cap PO SCH (09:25)
[2017-08-22] MEDS: Omega-3-Acid Ethyl Esters 1 GM Cap PO SCH ×2 (09:25→16:13)
--- NOTE | 2017-08-22 14:24 | PCM.PYCHPN ---
Psychiatric Progress Note - Psychiatric Progress Note Patient seen today, length of contact: Patient evaluated, chart reviewed, case discussed with team Patient Chief Complaint: i am ok Problems Identified/Issues Discussed: pt on evaluation, calm, cooperative with staff, Patient is disoriented w/ poor insight at baseline due to dementia. She denies current depression/anxiety/ hallucinations/paranoia. no reported side effects of medications DSM 5 Symptoms Update: dementia Medication Change: No Medical Record Reviewed: Yes Mental Status Examination - Cognitive Function Orientation: Person Memory: Impaired Attention: Poor Concentration: Poor Association: Loose Fund of Knowledge: Poor - Mood Mood: Neutral - Affect Affect: Broad - Speech Speech: Soft - Formal Thought Process Formal Thought Process: Loosening of associations (Due to chronic dementia) - Suicidal Ideation Suicidal Ideation: No - Homicidal Ideation Homicidal Ideation: No Goal/Treatment Plan - Goal/Treatment Plan Need for Continued Stay: Severe functional impairment Progress Toward Problem(s) and Goals/Treatment Plan: continue current management Estimated Date of D/C: 08/27/17
[2017-08-23] MEDS: Omega-3-Acid Ethyl Esters 1 GM Cap PO SCH ×2 (08:15→17:02)
[2017-08-23] MEDS: Megestrol Acetate 40 mg/ml Cup PO SCH (08:15)
[2017-08-23] MEDS: Olopatadine 0.1% Opht SOLN OU SCH ×2 (08:16→17:02)
--- NOTE | 2017-08-23 08:41 | PCM.PYCHPN ---
Psychiatric Progress Note - Psychiatric Progress Note Patient seen today, length of contact: Patient evaluated, chart reviewed, case discussed with team Patient Chief Complaint: "I'm good." Problems Identified/Issues Discussed: No new events over the weekend. A + O x 1. Patient is disoriented w/ poor insight at baseline due to dementia. She denies current depression/anxiety/ hallucinations/paranoia. Medication Change: No Medical Record Reviewed: Yes Consults ordered or reviewed: Medicine consult Psychology consult 08/20/17: Pt is an 87 year old female admitted to the geropsych unit and referred to the automatic typewriter inspector for evaluation. On the DRS, pt scored an overall score of 85>. Pt scored within normal limits on Attention and Conceptualization tasks. Pt's Construction and Initiation skills fell in the DEficient Range. Memory skills and new learning abilities were severely impaired. Overall 85 Attention 27 Construction 2 Conceptualization 33 Initiation 14 Memory 8> 24 hour supervision recommended. Thank you for this referral, Dr. South Mental Status Examination - Cognitive Function Orientation: Person Memory: Impaired Attention: Poor Concentration: Poor Association: Loose Fund of Knowledge: Poor Decription of patient's judgement and insights: Chronic poor I/J due to dementia - Mood Mood: Neutral - Affect Affect: Broad - Speech Speech: Soft - Formal Thought Process Formal Thought Process: Loosening of associations (Due to chronic dementia) Psychotic Thoughts and Behaviors: NO AH/VH/paranoia/delusions - Suicidal Ideation Suicidal Ideation: No - Homicidal Ideation Homicidal Ideation: No Goal/Treatment Plan - Goal/Treatment Plan Need for Continued Stay: Severe functional impairment Progress Toward Problem(s) and Goals/Treatment Plan: Dementia w/ Behavioral Disturbances, Psychosis unspecified; patient is at her baseline of functioning and is psychiatrically stable to start referral process for [facility] placement. -Individual and group therapy -Continue Aricept 10 mg PO HS, Namenda 5 mg PO Daily -Continue Risperdal 0.5 mg PO Daily@1300 -Continue Remeron 7.5 mg PO HS -Medicine consult -Collateral history obtained -Disposition planning Estimated Date of D/C: 08/27/17
--- NOTE | 2017-08-24 08:21 | PCM.PYCHPN ---
Psychiatric Progress Note - Psychiatric Progress Note Patient seen today, length of contact: Patient evaluated, chart reviewed, case discussed with team Patient Chief Complaint: "I'm good." Problems Identified/Issues Discussed: No new events overnight. A + O x 1. Patient is disoriented w/ poor insight at baseline due to dementia. She denies current depression/anxiety/ hallucinations/paranoia. Medication Change: No Medical Record Reviewed: Yes Consults ordered or reviewed: Medicine consult Psychology consult 08/20/17: Pt is an 87 year old female admitted to the geropsych unit and referred to the junior copywriter for evaluation. On the DRS, pt scored an overall score of 85>. Pt scored within normal limits on Attention and Conceptualization tasks. Pt's Construction and Initiation skills fell in the DEficient Range. Memory skills and new learning abilities were severely impaired. Overall 85 Attention 27 Construction 2 Conceptualization 33 Initiation 14 Memory 8> 24 hour supervision recommended. Thank you for this referral, Dr. South Mental Status Examination - Cognitive Function Orientation: Person Memory: Impaired Attention: Poor Concentration: Poor Association: Loose Fund of Knowledge: Poor Decription of patient's judgement and insights: Chronic poor I/J due to dementia - Mood Mood: Neutral - Affect Affect: Broad - Speech Speech: Soft - Formal Thought Process Formal Thought Process: Loosening of associations (Due to chronic dementia) Psychotic Thoughts and Behaviors: NO AH/VH/paranoia/delusions - Suicidal Ideation Suicidal Ideation: No - Homicidal Ideation Homicidal Ideation: No Goal/Treatment Plan - Goal/Treatment Plan Need for Continued Stay: Severe functional impairment Progress Toward Problem(s) and Goals/Treatment Plan: Dementia w/ Behavioral Disturbances, Psychosis unspecified; patient is at her baseline of functioning and is psychiatrically stable to start referral process for [facility] placement. -Individual and group therapy -Continue Aricept 10 mg PO HS, Namenda 5 mg PO Daily -Continue Risperdal 0.5 mg PO Daily@1300 -Continue Remeron 7.5 mg PO HS -Medicine consult -Collateral history obtained -Disposition planning Estimated Date of D/C: 08/27/17
[2017-08-24] MEDS: Omega-3-Acid Ethyl Esters 1 GM Cap PO SCH ×2 (08:26→16:29)
[2017-08-24] MEDS: Megestrol Acetate 40 mg/ml Cup PO SCH (08:27)
[2017-08-24] MEDS: Olopatadine 0.1% Opht SOLN OU SCH ×2 (08:27→16:29)
--- NOTE | 2017-08-24 12:57 | CP.PCM.PN ---
Subjective - Date & Time of Evaluation Date of Evaluation: 08/19/17 Time of Evaluation: 10:30 - Subjective Subjective: Patient feels better. Still has episodes of confusion Has no chest pain or SOB, Objective - Vital Signs/Intake and Output Vital Signs (last 24 hours): Temp Pulse Resp BP Pulse Ox 97.7 F 97 H 19 144/74 99 08/24/17 06:00 08/24/17 08:26 08/24/17 06:00 08/24/17 08:26 08/14/17 02:24 - Medications Medications: Current Medications Acetaminophen (Tylenol 325mg Tab) 650 mg PO Q4 PRN PRN Reason: Pain, moderate (4-7) Al Hydrox/Mg Hydrox/Simethicone (Maalox Plus 30 Ml) 30 ml PO Q4 PRN PRN Reason: Dyspepsia Amlodipine Besylate (Norvasc) 5 mg PO DAILY [facility] Last Admin: 08/24/17 08:26 Dose: 5 mg Atorvastatin Calcium (Lipitor) 10 mg PO HS [facility] Last Admin: 08/23/17 21:36 Dose: 10 mg Bismuth Subsalicylate (Pepto-Bismol) 524 mg PO Q4 PRN PRN Reason: Diarrhea Docusate Sodium (Colace) 100 mg PO BID PRN PRN Reason: Constipation Last Admin: 08/21/17 08:29 Dose: 100 mg Donepezil HCl (Aricept) 10 mg PO HS [facility] Last Admin: 08/23/17 21:36 Dose: 10 mg Ergocalciferol (Drisdol 50,000 Intl Units Cap) 1 cap PO QWK@SUN [facility] Last Admin: 08/22/17 09:25 Dose: 1 cap Lorazepam (Ativan) 0.5 mg PO HS PRN PRN Reason: Insomnia Stop: 08/28/17 02:59 Lorazepam (Ativan) 0.5 mg PO Q6 PRN PRN Reason: Anixety/Agitation Stop: 08/28/17 02:59 Last Admin: 08/16/17 14:24 Dose: 0.5 mg Magnesium Hydroxide (Milk Of Magnesia) 30 ml PO HS PRN PRN Reason: Constipation Megestrol Acetate (Megace) 400 mg PO DAILY [facility] Last Admin: 08/24/17 08:27 Dose: 400 mg Memantine (Namenda) 5 mg PO DAILY [facility] Last Admin: 08/24/17 08:26 Dose: 5 mg Mirtazapine (Remeron) 7.5 mg PO HS [facility] Last Admin: 08/23/17 21:36 Dose: 7.5 mg Olopatadine HCl (Patanol 0.1% Opht Soln) 1 drop OU BID [facility] Last Admin: 08/24/17 08:27 Dose: 1 drop Lwdzb-5-Qvef Ethyl Esters (Lovaza) 1 gm PO BID [facility] Last Admin: 08/24/17 08:26 Dose: 1 gm Risperidone (Risperdal Tab) 0.5 mg PO DAILY@1300 [facility] Last Admin: 08/24/17 12:38 Dose: 0.5 mg - Labs Labs: 08/13/17 23:59 08/13/17 23:59 Assessment and Plan (1) Physical debility Status: Acute (2) Dementia Status: Acute (3) Anxiety and depression Status: Acute (4) Rheumatoid arthritis Status: Acute (5) Hypertension Status: Acute (6) Hyperlipidemia Status: Acute
--- NOTE | 2017-08-24 12:58 | CP.PCM.PN ---
Subjective - Date & Time of Evaluation Date of Evaluation: 08/21/17 Time of Evaluation: 09:30 - Subjective Subjective: patient is doing very well Has no chest pain or SOB afebrile Objective - Vital Signs/Intake and Output Vital Signs (last 24 hours): Temp Pulse Resp BP Pulse Ox 97.7 F 97 H 19 144/74 99 08/24/17 06:00 08/24/17 08:26 08/24/17 06:00 08/24/17 08:26 08/14/17 02:24 - Medications Medications: Current Medications Acetaminophen (Tylenol 325mg Tab) 650 mg PO Q4 PRN PRN Reason: Pain, moderate (4-7) Al Hydrox/Mg Hydrox/Simethicone (Maalox Plus 30 Ml) 30 ml PO Q4 PRN PRN Reason: Dyspepsia Amlodipine Besylate (Norvasc) 5 mg PO DAILY [facility] Last Admin: 08/24/17 08:26 Dose: 5 mg Atorvastatin Calcium (Lipitor) 10 mg PO HS [facility] Last Admin: 08/23/17 21:36 Dose: 10 mg Bismuth Subsalicylate (Pepto-Bismol) 524 mg PO Q4 PRN PRN Reason: Diarrhea Docusate Sodium (Colace) 100 mg PO BID PRN PRN Reason: Constipation Last Admin: 08/21/17 08:29 Dose: 100 mg Donepezil HCl (Aricept) 10 mg PO HS [facility] Last Admin: 08/23/17 21:36 Dose: 10 mg Ergocalciferol (Drisdol 50,000 Intl Units Cap) 1 cap PO QWK@SUN [facility] Last Admin: 08/22/17 09:25 Dose: 1 cap Lorazepam (Ativan) 0.5 mg PO HS PRN PRN Reason: Insomnia Stop: 08/28/17 02:59 Lorazepam (Ativan) 0.5 mg PO Q6 PRN PRN Reason: Anixety/Agitation Stop: 08/28/17 02:59 Last Admin: 08/16/17 14:24 Dose: 0.5 mg Magnesium Hydroxide (Milk Of Magnesia) 30 ml PO HS PRN PRN Reason: Constipation Megestrol Acetate (Megace) 400 mg PO DAILY [facility] Last Admin: 08/24/17 08:27 Dose: 400 mg Memantine (Namenda) 5 mg PO DAILY [facility] Last Admin: 08/24/17 08:26 Dose: 5 mg Mirtazapine (Remeron) 7.5 mg PO HS [facility] Last Admin: 08/23/17 21:36 Dose: 7.5 mg Olopatadine HCl (Patanol 0.1% Opht Soln) 1 drop OU BID [facility] Last Admin: 08/24/17 08:27 Dose: 1 drop Czlnp-5-Itbv Ethyl Esters (Lovaza) 1 gm PO BID [facility] Last Admin: 08/24/17 08:26 Dose: 1 gm Risperidone (Risperdal Tab) 0.5 mg PO DAILY@1300 [facility] Last Admin: 08/24/17 12:38 Dose: 0.5 mg - Labs Labs: 08/13/17 23:59 08/13/17 23:59 Assessment and Plan (1) Physical debility Status: Acute (2) Dementia Status: Acute (3) Anxiety and depression Status: Acute (4) Rheumatoid arthritis Status: Acute (5) Hypertension Status: Acute (6) Hyperlipidemia Status: Acute
--- NOTE | 2017-08-24 13:01 | CP.PCM.PN ---
Subjective - Date & Time of Evaluation Date of Evaluation: 08/24/17 Time of Evaluation: 12:59 - Subjective Subjective: Patient feels a lot better. Participates in group activities. Compliant with meds. Has better sleep and appetite Objective - Vital Signs/Intake and Output Vital Signs (last 24 hours): Temp Pulse Resp BP Pulse Ox 97.7 F 97 H 19 144/74 99 08/24/17 06:00 08/24/17 08:26 08/24/17 06:00 08/24/17 08:26 08/14/17 02:24 - Medications Medications: Current Medications Acetaminophen (Tylenol 325mg Tab) 650 mg PO Q4 PRN PRN Reason: Pain, moderate (4-7) Al Hydrox/Mg Hydrox/Simethicone (Maalox Plus 30 Ml) 30 ml PO Q4 PRN PRN Reason: Dyspepsia Amlodipine Besylate (Norvasc) 5 mg PO DAILY [facility] Last Admin: 08/24/17 08:26 Dose: 5 mg Atorvastatin Calcium (Lipitor) 10 mg PO HS [facility] Last Admin: 08/23/17 21:36 Dose: 10 mg Bismuth Subsalicylate (Pepto-Bismol) 524 mg PO Q4 PRN PRN Reason: Diarrhea Docusate Sodium (Colace) 100 mg PO BID PRN PRN Reason: Constipation Last Admin: 08/21/17 08:29 Dose: 100 mg Donepezil HCl (Aricept) 10 mg PO HS [facility] Last Admin: 08/23/17 21:36 Dose: 10 mg Ergocalciferol (Drisdol 50,000 Intl Units Cap) 1 cap PO QWK@SUN [facility] Last Admin: 08/22/17 09:25 Dose: 1 cap Lorazepam (Ativan) 0.5 mg PO HS PRN PRN Reason: Insomnia Stop: 08/28/17 02:59 Lorazepam (Ativan) 0.5 mg PO Q6 PRN PRN Reason: Anixety/Agitation Stop: 08/28/17 02:59 Last Admin: 08/16/17 14:24 Dose: 0.5 mg Magnesium Hydroxide (Milk Of Magnesia) 30 ml PO HS PRN PRN Reason: Constipation Megestrol Acetate (Megace) 400 mg PO DAILY [facility] Last Admin: 08/24/17 08:27 Dose: 400 mg Memantine (Namenda) 5 mg PO DAILY [facility] Last Admin: 08/24/17 08:26 Dose: 5 mg Mirtazapine (Remeron) 7.5 mg PO HS [facility] Last Admin: 08/23/17 21:36 Dose: 7.5 mg Olopatadine HCl (Patanol 0.1% Opht Soln) 1 drop OU BID [facility] Last Admin: 08/24/17 08:27 Dose: 1 drop [id number] Ethyl Esters (Lovaza) 1 gm PO BID [facility] Last Admin: 08/24/17 08:26 Dose: 1 gm Risperidone (Risperdal Tab) 0.5 mg PO DAILY@1300 [facility] Last Admin: 08/24/17 12:38 Dose: 0.5 mg - Labs Labs: 08/13/17 23:59 08/13/17 23:59 Assessment and Plan (1) Physical debility Status: Acute (2) Dementia Status: Acute (3) Anxiety and depression Status: Acute (4) Rheumatoid arthritis Status: Acute (5) Hypertension Status: Acute (6) Hyperlipidemia Status: Acute
--- NOTE | 2017-08-25 08:21 | PCM.PYCHPN ---
Psychiatric Progress Note - Psychiatric Progress Note Patient seen today, length of contact: Patient evaluated, chart reviewed, case discussed with team Patient Chief Complaint: "I'm good." Problems Identified/Issues Discussed: No new events overnight. A + O x 1. Patient is disoriented w/ poor insight at baseline due to dementia. She denies current depression/anxiety/ hallucinations/paranoia. Medication Change: No Medical Record Reviewed: Yes Consults ordered or reviewed: Medicine consult Psychology consult 08/20/17: Pt is an 87 year old female admitted to the geropsych unit and referred to the va underwriter for evaluation. On the DRS, pt scored an overall score of 85>. Pt scored within normal limits on Attention and Conceptualization tasks. Pt's Construction and Initiation skills fell in the DEficient Range. Memory skills and new learning abilities were severely impaired. Overall 85 Attention 27 Construction 2 Conceptualization 33 Initiation 14 Memory 8> 24 hour supervision recommended. Thank you for this referral, Dr. South Mental Status Examination - Cognitive Function Orientation: Person Memory: Impaired Attention: Poor Concentration: Poor Association: Loose Fund of Knowledge: Poor Decription of patient's judgement and insights: Chronic poor I/J due to dementia - Mood Mood: Neutral - Affect Affect: Broad - Speech Speech: Soft - Formal Thought Process Formal Thought Process: Loosening of associations (Due to chronic dementia) Psychotic Thoughts and Behaviors: NO AH/VH/paranoia/delusions - Suicidal Ideation Suicidal Ideation: No - Homicidal Ideation Homicidal Ideation: No Goal/Treatment Plan - Goal/Treatment Plan Need for Continued Stay: Severe functional impairment Progress Toward Problem(s) and Goals/Treatment Plan: Dementia w/ Behavioral Disturbances, Psychosis unspecified; patient is at her baseline of functioning and is psychiatrically stable to start referral process for snf placement. -Individual and group therapy -Continue Aricept 10 mg PO HS, Namenda 5 mg PO Daily -Continue Risperdal 0.5 mg PO Daily@1300 -Continue Remeron 7.5 mg PO HS -Medicine consult -Collateral history obtained -Disposition planning Estimated Date of D/C: 08/30/17
[2017-08-25] MEDS: Omega-3-Acid Ethyl Esters 1 GM Cap PO SCH ×2 (09:30→17:46)
[2017-08-25] MEDS: Olopatadine 0.1% Opht SOLN OU SCH ×2 (09:31→17:46)
[2017-08-25] MEDS: Megestrol Acetate 40 mg/ml Cup PO SCH (09:33)
--- NOTE | 2017-08-26 07:14 | PCM.PYCHPN ---
Psychiatric Progress Note - Psychiatric Progress Note Patient seen today, length of contact: Patient evaluated, chart reviewed, case discussed with team Patient Chief Complaint: "I'm good." Problems Identified/Issues Discussed: No new events. A + O x 1. Patient is disoriented w/ poor insight at baseline due to dementia. She denies current depression/anxiety/hallucinations/ paranoia. Medication Change: No Medical Record Reviewed: Yes Consults ordered or reviewed: Medicine consult Psychology consult 08/20/17: Pt is an 87 year old female admitted to the geropsych unit and referred to the conventional underwriter for evaluation. On the DRS, pt scored an overall score of 85>. Pt scored within normal limits on Attention and Conceptualization tasks. Pt's Construction and Initiation skills fell in the DEficient Range. Memory skills and new learning abilities were severely impaired. Overall 85 Attention 27 Construction 2 Conceptualization 33 Initiation 14 Memory 8> 24 hour supervision recommended. Thank you for this referral, Dr. South Mental Status Examination - Cognitive Function Orientation: Person Memory: Impaired Attention: Poor Concentration: Poor Association: Loose Fund of Knowledge: Poor Decription of patient's judgement and insights: Chronic poor I/J due to dementia - Mood Mood: Neutral - Affect Affect: Broad - Speech Speech: Soft - Formal Thought Process Formal Thought Process: Loosening of associations (Due to chronic dementia) Psychotic Thoughts and Behaviors: NO AH/VH/paranoia/delusions - Suicidal Ideation Suicidal Ideation: No - Homicidal Ideation Homicidal Ideation: No Goal/Treatment Plan - Goal/Treatment Plan Need for Continued Stay: Severe functional impairment Progress Toward Problem(s) and Goals/Treatment Plan: Dementia w/ Behavioral Disturbances, Psychosis unspecified; patient is at her baseline of functioning and is psychiatrically stable to start referral process for assisted placement. -Individual and group therapy -Continue Aricept 10 mg PO HS, Namenda 5 mg PO Daily -Continue Risperdal 0.5 mg PO Daily@1300 -Continue Remeron 7.5 mg PO HS -Medicine consult -Collateral history obtained -Disposition planning Estimated Date of D/C: 08/30/17
[2017-08-26] MEDS: Omega-3-Acid Ethyl Esters 1 GM Cap PO SCH ×2 (08:40→16:43)
[2017-08-26] MEDS: Megestrol Acetate 40 mg/ml Cup PO SCH (08:41)
[2017-08-26] MEDS: Olopatadine 0.1% Opht SOLN OU SCH ×2 (08:43→16:44)
--- NOTE | 2017-08-27 08:28 | PCM.PYCHPN ---
Psychiatric Progress Note - Psychiatric Progress Note Patient seen today, length of contact: Patient evaluated, chart reviewed, case discussed with team Patient Chief Complaint: "I'm good." Problems Identified/Issues Discussed: No new events overnight. A + O x 1. Patient is disoriented w/ poor insight at baseline due to dementia. She denies current depression/anxiety/ hallucinations/paranoia. Medication Change: No Medical Record Reviewed: Yes Consults ordered or reviewed: Medicine consult Psychology consult 08/20/17: Pt is an 87 year old female admitted to the geropsych unit and referred to the technical publications writer for evaluation. On the DRS, pt scored an overall score of 85>. Pt scored within normal limits on Attention and Conceptualization tasks. Pt's Construction and Initiation skills fell in the DEficient Range. Memory skills and new learning abilities were severely impaired. Overall 85 Attention 27 Construction 2 Conceptualization 33 Initiation 14 Memory 8> 24 hour supervision recommended. Thank you for this referral, Dr. South Mental Status Examination - Cognitive Function Orientation: Person Memory: Impaired Attention: Poor Concentration: Poor Association: Loose Fund of Knowledge: Poor Decription of patient's judgement and insights: Chronic poor I/J due to dementia - Mood Mood: Neutral - Affect Affect: Broad - Speech Speech: Soft - Formal Thought Process Formal Thought Process: Loosening of associations (Due to chronic dementia) Psychotic Thoughts and Behaviors: NO AH/VH/paranoia/delusions - Suicidal Ideation Suicidal Ideation: No - Homicidal Ideation Homicidal Ideation: No Goal/Treatment Plan - Goal/Treatment Plan Need for Continued Stay: Severe functional impairment Progress Toward Problem(s) and Goals/Treatment Plan: Dementia w/ Behavioral Disturbances, Psychosis unspecified; patient is at her baseline of functioning and is psychiatrically stable to start referral process for shelter placement. -Individual and group therapy -Continue Aricept 10 mg PO HS, Namenda 5 mg PO Daily -Continue Risperdal 0.5 mg PO Daily@1300 -Continue Remeron 7.5 mg PO HS -Medicine consult -Collateral history obtained -Disposition planning Estimated Date of D/C: 08/30/17
[2017-08-27] MEDS: Omega-3-Acid Ethyl Esters 1 GM Cap PO SCH ×2 (09:17→17:40)
[2017-08-27] MEDS: Megestrol Acetate 40 mg/ml Cup PO SCH (09:17)
[2017-08-27] MEDS: Olopatadine 0.1% Opht SOLN OU SCH ×2 (09:18→17:41)
[2017-08-28] MEDS: Megestrol Acetate 40 mg/ml Cup PO SCH (09:01)
[2017-08-28] MEDS: Omega-3-Acid Ethyl Esters 1 GM Cap PO SCH ×2 (09:01→17:14)
[2017-08-28] MEDS: Olopatadine 0.1% Opht SOLN OU SCH ×2 (09:02→17:14)
--- NOTE | 2017-08-28 12:58 | PCM.PYCHPN ---
Psychiatric Progress Note - Psychiatric Progress Note Patient seen today, length of contact: Patient evaluated, chart reviewed, case discussed with team Patient Chief Complaint: pt has remained confused with poor insight regarding her dementia.pt is curently maintained on risperdal and remeron and aricept pt denies side effects to meds .. Medication Change: No Medical Record Reviewed: Yes Mental Status Examination - Cognitive Function Orientation: Person Memory: Impaired Attention: Poor Concentration: Poor Association: Loose Fund of Knowledge: Poor - Mood Mood: Neutral - Affect Affect: Broad - Speech Speech: Soft - Formal Thought Process Formal Thought Process: Loosening of associations (Due to chronic dementia) - Suicidal Ideation Suicidal Ideation: No - Homicidal Ideation Homicidal Ideation: No Goal/Treatment Plan - Goal/Treatment Plan Need for Continued Stay: Severe functional impairment Progress Toward Problem(s) and Goals/Treatment Plan: will continue to stabilize the pt with risperdal and remeron and aricept pt is waiting for NH placement. Estimated Date of D/C: 08/30/17
[2017-08-29] MEDS: Megestrol Acetate 40 mg/ml Cup PO SCH (08:31)
[2017-08-29] MEDS: Omega-3-Acid Ethyl Esters 1 GM Cap PO SCH ×2 (08:32→16:14)
[2017-08-29] MEDS: Ergocalciferol 50,000 Intl Units Cap PO SCH (08:32)
[2017-08-29] MEDS: Olopatadine 0.1% Opht SOLN OU SCH ×2 (08:33→16:14)
--- NOTE | 2017-08-29 14:49 | PCM.BM ---
Treatment Plan Problems - Problems identified on initial assessmt Cognitive loss/dementia Date Initiated: 08/14/17 Time Initiated: 03:12 Assessment reference: NA Status: Active Treatment assets and liabiliti Patient Assests: good support system Patient Liabilities: imparied memory, language/speech - Milieu Protocol Maintain good personal hygiene: daily Encourage regular showers, daily Remind patient to perform daily oral care, daily Assist patient to perform ADL's Conduct patient checks and document Observation sheet: Q15 minutes Maintain personal safety: every shift Educate patient to report safety concerns to staff, every shift Monitor environment for contraband/sharps Medication safety: Monitor for expected outcome, potential side effects: every shift, Assess barriers to learning: every shift, Assess readiness for medication education: every shift Milieu Narrative: will continue to stabilize the pt with risperdal and remeron and aricept pt is waiting for NH placement. Family Contact Family contact: Patient agrees to contact, Family has been contacted by patient , Telephone contact initiated by staff Family contact name: Adelia Macieljohanna ([facility], ) Family contacted how many times per week?: 4 Family contact comment: Adelia reported that pt recently has been misplacing things, wondering and hoarding. Adelia reported that pt's memory and cognitive capacity has been deteriorating for the past 2 years. Adelia denied that pt had a prior psych history, but stated that pt's mother from complicationd from Dementia at the age of 90. Adelia is fearful that pt will be hit by a car and does not feel that she can return home by herself at this time. - Goals for Treatment Patient goals for treatment: Pt not oriented, unable to participate. Patient's family/SO goals for treatment: Family would like pt to become more behaviorally controlled and review for most appropriate placement. Discharge/Continuing Care - Education Needs Education Needs: Family Diagnosis/Disease Process, Patient Medication, Patient Diagnosis/Disease Process, Patient Coping Skills, Patient Placement options, Patient Community resources, Patient Aftercare Safety Plan - Discharge Discharge Criteria: Tolerates medication w/o severe side effects, Free of Suicidal thoughts, Normal sleep pattern, Ability to care for self, Reduction of target symptoms Discharge to:: Home, Skilled Nursing, With Family - Additional Comments 08/16/17 12:23 Pt seen and discussed in team meeting. Reason for admission discussed and reviewed with pt. Pt reported she's in the hospital because she fall at home. Hematologist inquired about the paranoid and pt stated "I felt like they are trying to lock me in." Pt unable to state who "they" are. Pt's medical and social issues reviewed. Pt reported she resides alone but that both of her daughters visit often. Pt also reported that she received home care services daily, but cannot recall how many hours. Pt reported that services are via [facility]. Pt's medications reviewed and discussed. Hematologist inquired about NH placement , pt adamantly refused stating "No because i have family." Tx plan discussed and reviewed with pt. Pt is agreeable to remain on the unit until filing writer reaches out to daughters and case is discussed at length. - Treatment Team Participation Patient/Family/SO Statement: will continue to stabilize the pt with risperdal and remeron and aricept pt is waiting for NH placement. Discussed with Family/SO: No (Pt informed via telephone by Diogenes OSPINA ) Was Patient/Family/SO present at Treatment Team Meeting: Yes Treatment Plan Review - Problem Cognitive loss/dementia Time Initiated: 03:12 Progress toward outcomes: unchanged - Discharge / Continuing Care Discharge to:: Skilled Nursing (Pt is accepted to [facility] in [place], [place] awaiting bed availability.)
--- NOTE | 2017-08-30 08:05 | PCM.PYCHPN ---
Psychiatric Progress Note - Psychiatric Progress Note Patient seen today, length of contact: Patient evaluated, chart reviewed, case discussed with team Patient Chief Complaint: "I'm good." Problems Identified/Issues Discussed: No new events over the weekend. A + O x 1. Patient is disoriented w/ poor insight at baseline due to dementia. She denies current depression/anxiety/ hallucinations/paranoia. Medication Change: No Medical Record Reviewed: Yes Consults ordered or reviewed: Medicine consult Psychology consult 08/20/17: Pt is an 87 year old female admitted to the geropsych unit and referred to the va underwriter for evaluation. On the DRS, pt scored an overall score of 85>. Pt scored within normal limits on Attention and Conceptualization tasks. Pt's Construction and Initiation skills fell in the DEficient Range. Memory skills and new learning abilities were severely impaired. Overall 85 Attention 27 Construction 2 Conceptualization 33 Initiation 14 Memory 8> 24 hour supervision recommended. Thank you for this referral, Dr. South Mental Status Examination - Cognitive Function Orientation: Person Memory: Impaired Attention: Poor Concentration: Poor Association: Loose Fund of Knowledge: Poor Decription of patient's judgement and insights: Chronic poor I/J due to dementia - Mood Mood: Neutral - Affect Affect: Broad - Speech Speech: Soft - Formal Thought Process Formal Thought Process: Loosening of associations (Due to chronic dementia) Psychotic Thoughts and Behaviors: NO AH/VH/paranoia/delusions - Suicidal Ideation Suicidal Ideation: No - Homicidal Ideation Homicidal Ideation: No Goal/Treatment Plan - Goal/Treatment Plan Need for Continued Stay: Severe functional impairment Progress Toward Problem(s) and Goals/Treatment Plan: Dementia w/ Behavioral Disturbances, Psychosis unspecified; patient is at her baseline of functioning and is psychiatrically stable to start referral process for long-term placement. -Individual and group therapy -Continue Aricept 10 mg PO HS, Namenda 5 mg PO Daily -Continue Risperdal 0.5 mg PO Daily@1300 -Continue Remeron 7.5 mg PO HS -Medicine consult -Collateral history obtained -Disposition planning Estimated Date of D/C: 09/01/17
[2017-08-30] MEDS: Omega-3-Acid Ethyl Esters 1 GM Cap PO SCH ×2 (09:12→17:28)
[2017-08-30] MEDS: Megestrol Acetate 40 mg/ml Cup PO SCH (09:12)
[2017-08-30] MEDS: Olopatadine 0.1% Opht SOLN OU SCH ×2 (09:12→17:28)
[2017-08-31 05:44] VITALS: BP 107/55; PULSE 79; RESP 18; TEMP 97.1
[2017-08-31] MEDS: Megestrol Acetate 40 mg/ml Cup PO SCH (08:25)
[2017-08-31] MEDS: Olopatadine 0.1% Opht SOLN OU SCH (08:25)
[2017-08-31] MEDS: Omega-3-Acid Ethyl Esters 1 GM Cap PO SCH (08:26)
--- NOTE | 2017-08-31 08:35 | PCM.PYCHPN ---
Psychiatric Progress Note - Psychiatric Progress Note Patient seen today, length of contact: Patient evaluated, chart reviewed, case discussed with team Patient Chief Complaint: "I'm good." Problems Identified/Issues Discussed: No new events. A + O x 1. Patient is disoriented w/ poor insight at baseline due to dementia. She denies current depression/anxiety/hallucinations/ paranoia. Medication Change: No Medical Record Reviewed: Yes Consults ordered or reviewed: Medicine consult Psychology consult 08/20/17: Pt is an 87 year old female admitted to the geropsych unit and referred to the senior mortgage underwriter for evaluation. On the DRS, pt scored an overall score of 85>. Pt scored within normal limits on Attention and Conceptualization tasks. Pt's Construction and Initiation skills fell in the DEficient Range. Memory skills and new learning abilities were severely impaired. Overall 85 Attention 27 Construction 2 Conceptualization 33 Initiation 14 Memory 8> 24 hour supervision recommended. Thank you for this referral, Dr. South Mental Status Examination - Cognitive Function Orientation: Person Memory: Impaired Attention: Poor Concentration: Poor Association: Loose Fund of Knowledge: Poor Decription of patient's judgement and insights: Chronic poor I/J due to dementia - Mood Mood: Neutral - Affect Affect: Broad - Speech Speech: Soft - Formal Thought Process Formal Thought Process: Loosening of associations (Due to chronic dementia) Psychotic Thoughts and Behaviors: NO AH/VH/paranoia/delusions - Suicidal Ideation Suicidal Ideation: No - Homicidal Ideation Homicidal Ideation: No Goal/Treatment Plan - Goal/Treatment Plan Need for Continued Stay: Severe functional impairment Progress Toward Problem(s) and Goals/Treatment Plan: Dementia w/ Behavioral Disturbances, Psychosis unspecified; patient is at her baseline of functioning and is psychiatrically stable to start referral process for [facility] placement. -Individual and group therapy -Continue Aricept 10 mg PO HS, Namenda 5 mg PO Daily -Continue Risperdal 0.5 mg PO Daily@1300 -Continue Remeron 7.5 mg PO HS -Medicine consult -Collateral history obtained -Disposition planning Estimated Date of D/C: 09/01/17
--- NOTE | 2017-08-31 11:14 | PCM.PYCHDC ---
Mental Status Examination - Mental Status Examination Orientation: Person Memory: Impaired Mood: Neutral Affect: Broad Speech: Appropriate Attention: Poor Concentration: Poor Association: Loose Fund of Knowledge: Poor Formal Thought Process: Loosening of associations Description of patient's judgement and insight: Chronic poor I/J due to dementia Psychotic Thoughts and Behaviors: NO AH/VH/paranoia/delusions Suicidal Ideation: No Current Homicidal Ideation?: No Discharge Summary - Discharge Note Reason for Hospitalization: Patient is a poor historian due to chronic dementia. History obtained from daughter who gave the group underwriter to modify the medications as medically and psychiatrically indicated. HPI: 87 yo female w/ history of dementia, BIB EMS due to falling and having leg and back pain. Patient denies psychiatric symptoms including depression, anxiety, hallucinations. She denies SI/HI. She does not know where she is or why she is in the hospital. As per daughterAdelia [phone], patient has had worsening dementia, she is not able to care for herself, wanders around, has poor appetite, is non- compliant with medcations and is not sleeping well. She also reports that the patient is paranoid and thinks others are stealing from her. PPHx: No prior psychiatric admissions, h/o dementia PMHx: Arthritis, HTN, HLD ALL: PCN SHx: Lives alone, but can not care for herself at this time. No drugs/etoh. Consultations:: List each consultation separately and include: 1. Reason for request. 2. Findings. 3. Follow-up Consultations: Medicine consult Psychology consult 08/20/17: Pt is an 87 year old female admitted to the geropsych unit and referred to the group underwriter for evaluation. On the DRS, pt scored an overall score of 85>. Pt scored within normal limits on Attention and Conceptualization tasks. Pt's Construction and Initiation skills fell in the DEficient Range. Memory skills and new learning abilities were severely impaired. Overall 85 Attention 27 Construction 2 Conceptualization 33 Initiation 14 Memory 8> 24 hour supervision recommended. Thank you for this referral, Dr. South Summary of Hospital Course include:: 1. Description of specific treatment plan utilized for patients during their course of treatmen. 2. Summarize the time- course for resolution of acute symptoms and/or regressed behaviors. 3. Describe issues identified and worked on during hospitalization. 4. Describe medication utilized. 5. Describe medical problems identified and treated. 6. Reassessment of suicide risk Summary of Hospital Course: Patient was admitted to the geriatric psychiatry unit. Individual and group therapy were provided. Patient was stabilized on Aricept 10 mg PO HS, Namenda 5 mg PO Daily, Risperdal 0.5 mg PO Daily@1300, Remeron 7.5 mg PO HS. Patient is psychiatrically stable for discharge at this time. - Diagnosis (1) Dementia with behavioral disturbance Current Visit: Yes Status: Acute (2) Psychosis Current Visit: Yes Status: Acute - Final Diagnosis (DSM 5) Condition upon Discharge: STABLE DSM 5: Dementia w/ behavioral disturbances Disposition: TRANSF TO SNF Follow-up Treatment Plan: Dementia w/ Behavioral Disturbances, Psychosis unspecified; patient is at her baseline of functioning. -Individual and group therapy -Continue Aricept 10 mg PO HS, Namenda 5 mg PO Daily -Continue Risperdal 0.5 mg PO Daily@1300 -Continue Remeron 7.5 mg PO HS -Medicine consult -Collateral history obtained -Discharge to halfway - Smoking Cessation Smoking Cessation Medication prescribed: No Reason for not providing: Not indicated - Antipsychotic Medications Pt discharged on 2 or more routine antipsychotic medications: No
--- NOTE | 2017-08-31 16:18 | CP.PCM.PN ---
Subjective - Date & Time of Evaluation Date of Evaluation: 08/31/17 Time of Evaluation: 10:00 - Subjective Subjective: Patient seen and examined with Dr. Callahan. Seen ambulating around unit. No apparent distress. Calm. Eating breakfast. Case d/w Dr. Escobar. Patient to be discharged today or tomorrow to SNF Objective - Vital Signs/Intake and Output Vital Signs (last 24 hours): Temp Pulse Resp BP Pulse Ox 97.1 F L 79 18 107/55 L 99 08/31/17 05:44 08/31/17 08:25 08/31/17 05:44 08/31/17 08:25 08/14/17 02:24 - Labs Labs: 08/13/17 23:59 08/13/17 23:59 - Constitutional Appears: Non-toxic, No Acute Distress - Head Exam Head Exam: NORMAL INSPECTION - ENT Exam ENT Exam: Mucous Membranes Moist - Respiratory Exam Respiratory Exam: NORMAL BREATHING PATTERN - Extremities Exam Extremities Exam: Normal Inspection - Neurological Exam Neurological Exam: Alert, Awake, Normal Gait - Skin Skin Exam: Dry, Intact Assessment and Plan (1) Physical debility Status: Acute (2) Dementia Assessment & Plan: Patient to be d/c to SNF. Status: Chronic (3) Anxiety and depression Status: Chronic (4) Hyperlipidemia Status: Chronic (5) Hypertension Status: Chronic - Assessment and Plan (Free Text) Assessment: 87 year old female with dementia, behavioral disturbances. Patient is clinically stable. d/c to SNF. Patient seen with Dr. Callahan.
== END 2017-08-31 12:50 | DRG 884 ==
LOC: H.ER 19:08 → H.ERHOLD 23:42 → H.STEP 08-14 02:40
PROVIDERS: ADMIT Psychiatry & Neurology Psychiatry; ATTEND Psychiatry & Neurology Psychiatry
PROC: GZHZZZZ Group Psychotherapy (ICD-10-PCS; principal; 2017-08-16)
PROC: GZ51ZZZ Individual Psychotherapy, Behavioral (ICD-10-PCS; 2017-08-16)
DX: F03.91 Unspecified dementia, unspecified severity, with behavioral disturbance (principal); M06.9 Rheumatoid arthritis, unspecified; E78.00 Pure hypercholesterolemia, unspecified; F32.9 Major depressive disorder, single episode, unspecified; F41.9 Anxiety disorder, unspecified; H40.9 Unspecified glaucoma; I10 Essential (primary) hypertension; J45.909 Unspecified asthma, uncomplicated; Z79.899 Other long term (current) drug therapy; Z90.49 Acquired absence of other specified parts of digestive tract; Z91.81 History of falling; G89.29 Other chronic pain; K29.70 Gastritis, unspecified, without bleeding; M19.90 Unspecified osteoarthritis, unspecified site; M54.9 Dorsalgia, unspecified; R63.4 Abnormal weight loss; E78.5 Hyperlipidemia, unspecified